=== PATIENT | female | born 1990 | race Caucasian/White ===

== ENCOUNTER → 2018-03-10 15:34 | Outpatient (CLI) | payer BC, SELFPAY | PROVIDERS: Family Provider Family Medicine; PCP Family Medicine; Visit Provider Family Medicine | DX: L02.91 Cutaneous abscess, unspecified (principal) | CPT/HCPCS: 87070; 87077; 87186; 87205 ==

== ENCOUNTER → 2018-04-07 15:49 | Outpatient (CLI) | payer BC, SELFPAY ==
[2018-04-07 19:55] LABS: M R Staph aureus DNA By PCR Negative (Negative); Probe Check PASS; Specimen Processing Control PASS
== END ==
PROVIDERS: Family Provider Family Medicine; PCP Family Medicine; Visit Provider Family Medicine
DX: Z20.818 Contact with and (suspected) exposure to other bacterial communicable diseases (principal)
CPT/HCPCS: 87081; 87641

== ENCOUNTER → 2018-09-23 14:00 | Outpatient (CLI) | payer BC, SELFPAY ==
[2017-06-06 07:34] VITALS: BMI 25.9
[2018-09-26 09:39] LABS: HPV Reflexed? NOT INDICATED
== END ==
PROVIDERS: Visit Provider Obstetrics & Gynecology
DX: Z12.4 Encounter for screening for malignant neoplasm of cervix (principal)
CPT/HCPCS: 88175; G0145

== ENCOUNTER → 2019-06-10 | Outpatient (CLI) | payer BC, SELFPAY ==
[2019-06-10 17:38] LABS: Chlamydia Trachomatis by PCR Negative (Negative); Neisserai gonorrhoeae by PCR Negative (Negative); Probe Check PASS; Sample Adequacy Control PASS; Specimen Processing Control PASS
== END | disposition home or self-care (01) ==
LOC: LABSPEC 14:10
PROVIDERS: Visit Provider Obstetrics & Gynecology
DX: Z34.81 Encounter for supervision of other normal pregnancy, first trimester (principal)
CPT/HCPCS: 87491; 87591

== ENCOUNTER → 2019-06-25 | Outpatient (CLI) | payer BC, SELFPAY ==
[2017-06-06 07:34] VITALS: BMI 25.9
[2019-06-25 18:13] LABS: hCG Titer Quant., Serum 28404 mIU/mL (1-3)
== END | disposition home or self-care (01) ==
LOC: WOBLAB 16:06
PROVIDERS: Visit Provider Obstetrics & Gynecology
DX: O20.0 Threatened abortion (principal)
CPT/HCPCS: 36415; 84702

== ENCOUNTER 2019-06-26 18:02 | Emergency (ER) | payer BC, SELFPAY ==
[2019-06-26 18:03] VITALS: BP 101/75; PULSE 97; RESP 15; TEMP 36.7; O2SAT 100; BMI 22.1
--- NOTE | 2019-06-26 18:43 | ED.DCSUM_ITS ---
History of Present Illness Chief Complaint: Vag Bld, Preg Informant: Patient Onset: Days - 2 Context: Gradual Onset Timing: Intermittent Narrative: Is a 29-year-old female G2, P1 presenting with vaginal bleeding and abdominal cramping. Patient was a 5 weeks on ultrasound at her BILINGUAL CASE MANAGER office 2 days ago. Per the patient and her , 2 gestational sacs were seen but only one looked viable. No heartbeat was seen at that time. Last menstrual period was in April and patient should have been 8 weeks by last menstrual period. Patient is O-. Since that appointment patient has had increased spotting and then around 330 this afternoon she started developing heavy bleeding, cramping and passage of clots. Patient came to the emergency room for further evaluation. She currently denies any other complaints such as urinary symptoms. Past Medical History - Allergies and Home Meds Allergies/Adverse Reactions: Allergies No Known Allergies Allergy (Verified 06/26/19 18:03) Primary Care Physician: Eliezer Chapin DO [Primary Care Provider] - Past Medical History: None Surgical History: noncontributory Smoking Status: Never smoker Review of Systems All systems negative except as indicated Genitourinary: Reports: - - Pelvic pain, vaginal bleeding Physical Exam Vital Signs/Narrative: Vital Signs Temp Pulse Resp BP Pulse Ox 06/26/19 18:03 98.0 F 97 15 101/75 100 Inital Vital Signs reviewed: Yes General: Well nourished, Well developed, No Acute Distress Head: Normocephalic, Atraumatic Eyes: Perrl, EOMI. Negative for: Pale conjunctiva ENT: Moist mucous membranes, No rhinorrhea Neck: Supple, Nontender Cardiovascular: Regular rate, Regular rhythm, No murmurs Respiratory: No distress, CTA bilaterally, Chest nontender Abdomen: Soft, Nontender, Nondistended, Normal bowel sounds Back: Nontender, Normal Inspection Extremities: Nontender, No edema Skin: Normal color, No rash Neurological: Alert, Oriented x3, Cranial nerves II-XII grossly intact, Normal Strength, Normal Sensation Psychological: Normal affect, Normal Mood Diagnostic/Tx/Re-eval Clinical Impression(s) from Imaging Studies Obstetrics Ultrasound 06/26/19 18:49 IMPRESSION: And intact intrauterine gestation is not identified. The cervix is open and expanded by amorphous tissues consistent with miscarriage in process. Probable 2.4 x 1.8 x 1.1 cm involuting corpus luteum of the right ovary. Normal left ovary. No additional adnexal masses or free fluid. Electronically Signed: Adele Ordoñez MD at 20:42 EDT , Service support , Laboratory Data 06/26/19 06/26/19 06/26/19 19:00 19:00 19:00 WBC 7.0 RBC 4.09 L Hgb 12.2 Hct 37.1 MCV 90.7 MCH 29.8 MCHC 32.9 RDW Std Deviation 42.6 RDW Coeff of Lluvia 12.9 Plt Count 177 MPV 10.5 Immature Gran % (Auto) 0.100 Neut % (Auto) 55.3 Lymph % (Auto) 28.8 Eddy % (Auto) 9.3 Eos % (Auto) 5.8 H Baso % (Auto) 0.7 Absolute Neuts (auto) 3.9 Absolute Lymphs (auto) 2.02 Nucleated RBC % 0 HCG, Quant 86379 H Serum , Qual POSITIVE H Urine Color Urine Clarity Urine pH Ur Specific [place] Urine Protein Urine Glucose (UA) Urine Ketones Urine Occult Blood Urine Nitrite Urine Bilirubin Urine Urobilinogen Ur Leukocyte Esterase Urine RBC Urine WBC Ur Squamous Epith Cells Urine Bacteria Urine Mucus 06/26/19 20:33 WBC RBC Hgb Hct MCV MCH MCHC RDW Std Deviation RDW Coeff of Lluvia Plt Count MPV Immature Gran % (Auto) Neut % (Auto) Lymph % (Auto) Eddy % (Auto) Eos % (Auto) Baso % (Auto) Absolute Neuts (auto) Absolute Lymphs (auto) Nucleated RBC % HCG, Quant Serum , Qual Urine Color Red Urine Clarity Turbid Urine pH 5.0 Ur Specific [place] 1.025 Urine Protein 500 H Urine Glucose (UA) Normal Urine Ketones 5 H Urine Occult Blood 250 H Urine Nitrite Negative Urine Bilirubin Negative Urine Urobilinogen Normal Ur Leukocyte Esterase Negative Urine RBC > 100 SEEN Urine WBC 0-5 SEEN Ur Squamous Epith Cells 0-5 SEEN Urine Bacteria 0 SEEN Urine Mucus 0 SEEN - Medical Decision Making Is evaluated for vaginal bleeding and pain in early . Chart review shows that patient is Rh- and is given RhoGam. Patient is hemodynamically sta ble. Patient's hCG has dropped since yesterday which is consistent with an active miscarriage. Ultrasound is obtained which confirms this. Patient does not have any free fluid and I do not ectopic ruptured ectopic. Patient is counseled that she is experiencing a miscarriage and counseled on signs and symptoms requiring return to emergency room such as heavy vaginal bleeding or lightheadedness. A page was placed for her BILINGUAL CASE MANAGER for further follow-up. Patient is counseled on signs and symptoms requiring return to the emergency room. Patient verbalizes agreement and understand this plan. Patient discharged home in stable and improved condition. ED Disposition - Plan for ED Patient: Disposition: Home or Assisted Living Diagnosis: Inevitable complete miscarriage without complication Instructions: Miscarriage Prescriptions: Ibuprofen [Motrin] 600 mg PO Q6H PRN PRN #20 tab PRN Reason: Pain Or Fever Prescription Printed Ondansetron [Zofran Odt] 4 mg PO Q8H PRN PRN #12 tab PRN Reason: Nausea Prescription Printed Referrals: Eliezer Chapin DO [Primary Care Provider] - Additional Instructions: Please follow-up with your BILINGUAL CASE MANAGER next week. Call on Saturday. Return to the em ergency room and call your BILINGUAL CASE MANAGER if you develop persistent bleeding (bleeding through a pad an hour for 4 hours in a row), lightheadedness/dizziness or other worrisome symptoms. Make sure you drink plenty of fluids.
--- NOTE | 2019-06-26 18:49 | US_ITS ---
STUDY: FIRST TRIMESTER OBSTETRICAL ULTRASOUND REASON FOR EXAM: Female, 29 years old possible twin gestation with heavy bleeding. LMP: Uncertain TECHNIQUE: Transvaginal real-time exam with grayscale image documentation. TECHNICAL QUALITY: Adequate. PRIOR ULTRASOUND: None. FINDINGS: There is no demonstrated intrauterine gestational sac The uterus measures 10.4 x 5.8 x 5.2 cm. There is no demonstrated uterine fibroid. The endometrial space is empty with an endometrial thickness of 6 mm. The cervix is open and expanded by amorphous tissues. The right ovary measures 3.6 x 1.9 x 2.7 cm. There is a 2.4 x 1.8 x 1.1 cm complex area of the right ovary. There is no visualized right adnexal mass or complex lesion. The left ovary measures 2.8 x 1.6 x 1.4 cm.. There is no left ovarian cyst. There is no visualized left adnexal mass or complex lesion. There is no fluid in the cul de sac. US/Transvaginal w/Preg US IMPRESSION: And intact intrauterine gestation is not identified. The cervix is open and expanded by amorphous tissues consistent with miscarriage in process. Probable 2.4 x 1.8 x 1.1 cm involuting corpus luteum of the right ovary. Normal left ovary. No additional adnexal masses or free fluid. Electronically Signed: Adele Ordoñez MD at 20:42 EDT , Service support ,
[2019-06-26 19:51] LABS: Absolute Lymphocyte Count 2.02 X10^3/uL (0.83-4.51); Absolute Neutrophil Count 3.9 X10^3/uL (2.0-7.7); Basophil# 0.05 X10^3/uL; Basophil% 0.7 % (0-1); Eosinophil# 0.41 X10^3/uL; Eosinophils% 5.8 % (0-5); Hematocrit 37.1 % (37-47); Hemoglobin 12.2 g/dL (12.0-15.0); Lymphocyte # 2.02 X10^3/ul (4.0); Lymphocyte % 28.8 % (19-41); Mean Corp Hgb Conc 32.9 g/dL (32-36); Mean Corpuscular Hgb 29.8 pg (27.0-32.0); Mean Corpuscular Volume 90.7 fL (81-99); Mean Platelet Vol. 10.5 fl (6.2-12.0); Monocyte# 0.65 X10^3/uL; Monocyte% 9.3 % (0-10); NRBC Flagged by Analyzer 0 % (0-5); Neutrophil # 3.88 X10^3/uL (2.7-7.7); Neutrophil % 55.3 % (47-70); Platelet Count 177 K/mm3 (150-450); RBC Distribution Width CV 12.9 % (11.6-14.6); RBC Distribution Width SD 42.6 fl (35.1-43.9); Red Blood Count 4.09 M/mm3 (4.2-5.4)
[2019-06-26 20:03] LABS: Internal QC Validated? YES +Cl - CLEAR BKGD
[2019-06-26 20:04] VITALS: BP 95/65; PULSE 70; RESP 16; O2SAT 98
[2019-06-26 20:07] LABS: Pregnancy, Serum, hCG Quali. POSITIVE Negative
[2019-06-26 20:37] LABS: Bacteria 0 SEEN /hpf (None Seen); Mucous, Urine 0 SEEN /hpf (<or=2+)
[2019-06-26 20:45] LABS: Color, Urine Red (Yellow); Glucose, Dipstick Normal (Normal); Ketone-Dipstick 5 mg/dl (Negative); Leukocyte Esterase-Dipstick Negative /ul (Negative); Nitrite-Dipstick Negative (Negative); Occult Blood-Urine 250 /ul (Negative); Protein-Dipstick 500 mg/dl (Negative); Specific Gravity, Urine 1.025 (1.002-1.030); Urine Bilirubin Dipstick Negative (Negative); Urine Clarity Turbid (Clear); Urine Urobilinogen Normal (Normal)
[2019-06-26 20:52] LABS: Red Blood Cells-Urine > 100 SEEN /hpf (0-5); Squamous Epithelial Cells - UA 0-5 SEEN /hpf (5-10); White Blood Cells 0-5 SEEN /hpf (0-5)
[2019-06-26 20:54] LABS: hCG Titer Quant., Serum 22933 mIU/mL (1-3)
[2019-06-26 21:23] VITALS: BP 100/40; PULSE 75; RESP 18; O2SAT 96
== END 2019-06-26 21:23 | disposition home or self-care (01) ==
PROVIDERS: Emergency Provider Emergency Medicine; Family Provider Family Medicine; PCP Family Medicine
DX: O03.9 Complete or unspecified spontaneous abortion without complication (principal)
CPT/HCPCS: 76817; 81001; 84702; 84703; 85025; 90384; 96372; 99283; A4216; J2405; J2790

== ENCOUNTER 2019-07-09 06:45 | Day surgery (SDC) | payer BC, SELFPAY ==
--- NOTE | 2019-07-06 18:22 | HP.PCM_ITS ---
History and Physical Date of Admission: 07/09/19 HISTORY OF PRESENT ILLNESS: On 07/03/2019, Stephanie Ricci, a 29 year old female 1 0 1 0 1, presented for: -- US OB LIMITED GROWTH Stephanie is here for f/u u/s to ck retained products from SAB. Dr BOLANOS to review u/s. LMT Denies vaginal bleeding but had spotting after US today. She noted a clot passed after taking Cytotec. Denies abdominal pain, fever, chills, nausea, vomiting. She feels well. katie ALLERGIES: No Known Drug Allergies MEDICATIONS HISTORY: Current medications prescribed by our practice are: 1. misoprostol 200 mcg tablet, Dissolve 4 tablets buccally over 20 minutes Patient is also takin. Zyrtec 10 mg tablet, One pill by mouth once a day REVIEW OF SYSTEMS: GENERAL - Denies fever, or chills SKIN - Denies skin changes EYES - Denies visual changes EARS - Denies difficulty hearing NOSE - Denies nasal congestion or bleeding MOUTH - Denies sore throat or difficulty swallowing NECK - Denies pain or swelling RESPIRATORY - Denies shortness of breath or wheezing CARDIOVASCULAR - Denies palpitations or chest pain GASTROINTESTINAL - Denies nausea, vomiting, diarrhea, constipation GENITOURINARY - spotting, cramping MUSCULOSKELETAL - Denies joint or muscle pain NEUROLOGICAL - Denies localized numbness or weakness PSYCHIATRIC - Denies depression or anxiety ENDOCRINE - Denies heat or cold intolerance, weight loss or gain HEMATO-IMMUNOLOGIC - Denies excessive bleeding with cuts PAST HISTORY: Breast/Ovarian/Colon Cancers - Maternal Grandmother had Breast Cancer Infections - varicella vaccine Illnesses - seasonal allergies Accidents - no injuries of consequence History of Abnormal PAPS - no pap Hospitalizations - childhood admissions for asthma x 2 no issues with asthma x 10 y. does have rescue inhaler but hasn't used.; SURGICAL HISTORY: 1. wisdom teeth 2. T and A MENSTRUAL HISTORY: LMP Known?- Approximate-Month KnownAmount/Duration - 6 days, Regularity - Regular, Frequency - monthly days, LMP - 04/23/19, Age Onset Menarche - 13 PAST PREGNANCIES: Total Pregnancies - 2; Full Term Pregnancies - 1; Premature - 0; Abortions, Induced - 0; Abortions, Spontaneous - 1; Ectopics - 0; Multiple Births - 0; Living Children - 1 FAMILY HISTORY: Mother - Heart disorder; Maternal Grandparent - Carcinoma of breast; SOCIAL HISTORY: Alcohol Use - RARELY Smoking - Never Diet - moderate, balanced diet and caffeine < 2 drinks per day Lifestyle - Exercise - active work Seat Belt Use - always Employer - [employer] 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 Illicit Drug Use - denies use of street drugs Sexual Activity - Residence - owns a home and lives with Place of - [place] Hours Worked - 36-40 Spouse-Sig Other Name - Yehuda Rcici Spouse-Sig Other Occupation - Workers' Compensation Magistrate, Delivery Spouse-Sig Other Phone No - [phone] Children Name(s) - Sg Brock Control - recent SAB PHYSICAL EXAMINATION BP- 110/62 Sitting, Right arm, regular cuff Weight- 131.00 lbs Height- 65.25 inch BMI:21.68 CONSTITUTIONAL - NAD, well nourished, and well developed SKIN - No rash, lesions, or ulcers HEENT - normocephalic, atraumatic, sclerae anicteric LUNGS - normal respiratory rate and rhythm NEUROLOGICAL - normal gait, normal balance, normal motor PSYCHIATRIC - A and O to time, place, person, mood and affect rt and lt ovary are wnl. ULTRSOUND: Uterus RV, 7.9 x 6.4 x 4.3 cm. Within the cervical canal is a 2.8 cm blood clot. Endometrial stripe: 1.1 cm and appears to contain POC. Measuring 1.6 cm with internal blood flow. ASSESSMENT: 1. Incomplete Spontaneous Without Complication PLAN BY DIAGNOSIS: 1. Incomplete Spontaneous Without Complication US findings reviewed with likely retained POCs despite Cytotec, UPT remains positive Advised suction dilation and curettage - reviewed with pt how performed, hospital course, r/b/i No evidence of infection Infection, bleeding precautions reviewed Plan for suction D and C as scheduled. The visit was approximately 15 minutes in length with most of the time spent in discussion and counseling.
[2019-07-09] VITALS (7 sets, daily range): BP systolic 91–107; BP diastolic 64–91; PULSE 68–74; RESP 16–18; TEMP 36.4–36.9; O2SAT 98–100; BMI 22.0
[2019-07-09 07:29] LABS: International Normalized Ratio 1.3; Prothrombin Time (Protime)PT. 15.8 SECONDS (11.7-14.9)
[2019-07-09 07:30] LABS: Partial Thromboplast Time 37.7 Seconds (24.1-36.2)
[2019-07-09] MEDS: Lactated Ringers 1,000 ML 100 ML IV (07:35)
[2019-07-09 07:36] LABS: Hematocrit 31.9 % (37-47); Hemoglobin 10.3 g/dL (12.0-15.0); Mean Corp Hgb Conc 32.3 g/dL (32-36); Mean Corpuscular Hgb 29.5 pg (27.0-32.0); Mean Corpuscular Volume 91.4 fL (81-99); Mean Platelet Vol. 10.3 fl (6.2-12.0); Platelet Count 152 K/mm3 (150-450); RBC Distribution Width CV 12.9 % (11.6-14.6); Red Blood Count 3.49 M/mm3 (4.2-5.4); White Blood Count 4.2 K/mm3 (4.4-11.0)
--- NOTE | 2019-07-09 07:36 | DCINST_ITS ---
Discharge Diet: No Restrictions Discharge Activity: May Shower, May Take a Tub Bath May resume sexual activity in: 1 week Call your doctor if you observe: Fever of 101 or Higher, Using more than one pad per hour, Uncontrolled pain Additional Instructions: Take tylenol 500 mg tabs one or two every 8 hr prn pain. You may add either two Aleve by mouth every 8 hrs, or Ibuprofen 200 mg tablets one to two tablets by mouth every 4 hours as needed for pain. Resume activity as tolerated on 07/10/19 with no restrictions. Allergies/Adverse Reactions: Allergies No Known Allergies Allergy (Verified 07/09/19 07:25) Medications to take at Discharge Cetirizine HCl [Zyrtec] 10 mg PO DAILY 06/06/17 Albuterol Inhaler [Ventolin Hfa (SP)] 1 - 2 puff INHALATION Q4H PRN PRN 07/08/19 Fluticasone 0.05% [Flonase Nasal [place]] 1 spray NASAL DAILY 07/08/19 Primary Care Physician: Eliezer Chapin DO [Primary Care Provider] - Test Results: Test results from this visit will be discussed in further detail at your follow- up appointment, if applicable. Please Follow Up With: Rosalba Olsen MD - [phone] When: in 2 wk for postop check up Proposed Discharge Date: 07/09/19
--- NOTE | 2019-07-09 08:10 | POC_PTH ---
PATIENT: AMELIA ALVARADO [place] [facility] [id number] AGE/SX: 29/F ROOM: RE07/09/[address]: Dr. Rosalba Olsen MD : 1990 BED: DIS: 07/09/2019 SPEC #: [id number] RECD: 07/09/19 13:00 STATUS: CARMEN RON #: [id number] SUZY: 07/09/19 08:[address]: Rosalba Olsen DEPT: SURGICAL PATHOLOGY RECD BY: Luigi Rangel ENTERED: 07/09/19 13:31 SP TYPE: PROD CONC OTHR DR: Dr. Eliezer Chapin, Tissues: Product of conception, NOS Procedures: Surgery Specimen Level IV HEADER OPERATION: Dilation and curettage, suction PRE-OP DIAGNOSIS: Incomplete spontaneous TISSUE SUBMITTED: Products of conception MICROSCOPIC DIAGNOSIS Products of conception: [place], gestational endometrium and a few immature chorionic villi (products of conception). SJ:niurka 07/10/19 MICROSCOPIC DESCRIPTION Slides are reviewed. GROSS DESCRIPTION Received in fixative is one container labeled with the patient's name and designated products of conception. The specimen consists of multiple irregular fragments of red-cruz soft tissue that in aggregate measure 4 x 3.5 x 0.8 cm. The specimen is submitted in its entirety in three cassettes. / AM:niurka 07/09/19 TC:5 CPT: 02117
--- NOTE | 2019-07-10 08:54 | PCM.OPRPT ---
Report of Operation Date of Procedure: 07/09/19 Pre-Operative Diagnosis: retained products of conception, incomplete SAB Post-Operative Diagnosis: Same Surgery/Procedure Performed:: Suction D and C Description of Surgical Findings:: parou cervix. uterus sounds to 8-9 cm and retroverted. Anesthesiologist: Evita Harding CRNA Specimen's removed: uterine curettings, products of conception Drains: Red kim to drain bladder prior to case Estimated Blood Loss (mL): 20 Fluids Replaced: LR Description of Procedure: Narrative account After the R,B,Alternatives of the procedure were reviewed with the patient and her , informed consent was obtained. The patient was taken to the operating room with an IV running and placed in dorsal supine position of the operating table. She was given MAC IV sedation and repositioned to the dorsal lithotomy position and prepped and draped in the usual sterile fashion. A graves speculum was placed into the vagina and the cervix was brought into view. The cervix was parous appearing . The cervix was instilled with 5 cc of 1% lidocaine as a paracervical block using a 20 G spinal needle. The cervix was then sequentially dilated to allow admission of the 7 mm curved suction curette tip. A suction D and C was then performed, followed by sharp curettage. Good crei was noted in all quadrants. . One final pass was conducted with the sharp curette tip advanced through the cervix to the uterine fundus . The single toothed tenaculum was removed from the cervix and a Ray Abe was used to remove any remaining tissue and blood from the upper vagina and cervix. The procedure was terminated. The speculum was removed. The patient was returned to dorsal supine position and awakened from IV sedation and transferred to her recovery room bed in stable condition after tolerating the procedure well. Sponge, lap, needle and instrument counts were correct x two. medications given intraoperatively included 5 cc of 1% lidocaine without epinephrine instilled as a paracervical block. For a complete listing of the medications given intraoperatively, see the anesthesia record. - Complications none - Admit VTE Documentation VTE Present on Admission: No VTE Mechan Device Prophylaxis: SCD's VTE Pharm Prophylaxis ordered?: No
== END 2019-07-09 09:25 | disposition home or self-care (01) ==
LOC: SDC 06:50 → AC 06:51
PROVIDERS: Family Provider Family Medicine; PCP Family Medicine; Referring Provider Obstetrics & Gynecology; Visit Provider Obstetrics & Gynecology
PROC: (CPT 59812; principal; 2019-07-09 07:55)
DX: O03.4 Incomplete spontaneous abortion without complication (principal); J45.909 Unspecified asthma, uncomplicated; Z79.51 Long term (current) use of inhaled steroids
CPT/HCPCS: 59812; 36415; 85027; 85610; 85730; 86850; 86870; 86900; 86901; 88305; J7120

== ENCOUNTER → 2019-11-06 | Outpatient (CLI) | payer BC, SELFPAY ==
[2019-07-09 07:25] VITALS: BMI 22.0
[2019-11-06 15:27] LABS: Chlamydia Trachomatis by PCR Negative (Negative); Neisserai gonorrhoeae by PCR Negative (Negative); Probe Check PASS; Sample Adequacy Control PASS; Specimen Processing Control PASS
== END | disposition home or self-care (01) ==
LOC: LABSPEC 13:11
PROVIDERS: PCP Family Medicine; Visit Provider Obstetrics & Gynecology
DX: Z11.3 Encounter for screening for infections with a predominantly sexual mode of transmission (principal)
CPT/HCPCS: 87491; 87591

== ENCOUNTER → 2019-11-27 | Outpatient (CLI) | payer BC, SELFPAY ==
[2019-07-09 07:25] VITALS: BMI 22.0
[2019-11-27 12:13] LABS: Absolute Lymphocyte Count 1.58 X10^3/uL (0.83-4.51); Absolute Neutrophil Count 3.9 X10^3/uL (2.0-7.7); Basophil# 0.04 X10^3/uL; Basophil% 0.6 % (0-1); Eosinophil# 0.41 X10^3/uL; Eosinophils% 6.2 % (0-5); Hematocrit 38.2 % (37-47); Hemoglobin 12.3 g/dL (12.0-15.0); Lymphocyte # 1.58 X10^3/ul (4.0); Lymphocyte % 23.8 % (19-41); Mean Corp Hgb Conc 32.2 g/dL (32-36); Mean Corpuscular Volume 83.8 fL (81-99); Mean Platelet Vol. 11.2 fl (6.2-12.0); Monocyte# 0.73 X10^3/uL; NRBC Flagged by Analyzer 0 % (0-5); Neutrophil # 3.86 X10^3/uL (2.7-7.7); Neutrophil % 58.1 % (47-70); Platelet Count 159 K/mm3 (150-450); RBC Distribution Width SD 54.2 fl (35.1-43.9); Red Blood Count 4.56 M/mm3 (4.2-5.4); White Blood Count 6.6 K/mm3 (4.4-11.0)
[2019-11-27 12:33] LABS: Thyroid Stim Hormone (TSH) 1.82 uIU/mL (0.358-3.74)
[2019-11-27 13:02] LABS: HIV - WCH Non-Reactive (Nonreactive); Hepatitis B Surface Antigen Non-Reactive (Nonreactive); Hepatitis C Antibody Non-Reactive (Nonreactive); Rubella IgG 46.1 IU/mL; Vitamin D,25 Hydroxy 29.2 ng/mL
[2019-11-27 15:41] LABS: Color, Urine Yellow (Yellow); Glucose, Dipstick Normal (Normal); Ketone-Dipstick Negative (Negative); Leukocyte Esterase-Dipstick 25 /ul (Negative); Nitrite-Dipstick Negative (Negative); Occult Blood-Urine Negative /ul (Negative); Protein-Dipstick Negative (Negative); Specific Gravity, Urine 1.015 (1.002-1.030); Urine Bilirubin Dipstick Negative (Negative); Urine Clarity Clear (Clear); Urine Urobilinogen Normal (Normal)
[2019-11-27 15:53] LABS: Amphetamine Urine VISTA NEGATIVE (<1000 ng/mL); Barbiturate Urine VISTA NEGATIVE (< 200 ng/mL); Benzodiazepine Urine VISTA NEGATIVE (< 200 ng/mL); Cocaine Urine VISTA NEGATIVE (< 300 ng/mL); Ecstacy Urine VISTA NEGATIVE (< 500 ng/mL); Methadone Urine VISTA NEGATIVE (< 300 ng/mL); PCP Urine VISTA NEGATIVE (< 25 ng/mL); THC Urine VISTA NEGATIVE (< 50 ng/mL); Vista UDS pH Range 6
[2019-12-04 04:37] LABS: Prenatal RPR NONREACTIVE (NONREACTIVE)
== END | disposition home or self-care (01) ==
LOC: WOBLAB 10:39
PROVIDERS: PCP Family Medicine; Visit Provider Obstetrics & Gynecology
DX: Z34.81 Encounter for supervision of other normal pregnancy, first trimester (principal)
CPT/HCPCS: 36415; 80307; 81002; 82306; 84443; 85025; 86703; 86762; 86803; 87340

== ENCOUNTER → 2020-04-14 09:37 | Outpatient (CLI) | payer BC, SELFPAY ==
[2019-07-09 07:25] VITALS: BMI 22.0
[2020-04-14 10:55] LABS: Glucose Challenge Gest 1H 50g 113 mg/dL (70-140)
[2020-04-14 10:56] LABS: Hemoglobin 10.8 g/dL (12.0-15.0); Mean Corp Hgb Conc 33.8 g/dL (32-36); Mean Corpuscular Hgb 31.8 pg (27.0-32.0); Mean Corpuscular Volume 94.1 fL (81-99); Platelet Count 115 K/mm3 (150-450); RBC Distribution Width CV 13.2 % (11.6-14.6); RBC Distribution Width SD 45.1 fl (35.1-43.9); White Blood Count 8.3 K/mm3 (4.4-11.0)
== END ==
LOC: LABSPEC 09:38 → WOBLAB 09:54
PROVIDERS: PCP Family Medicine; Visit Provider Obstetrics & Gynecology
DX: Z34.83 Encounter for supervision of other normal pregnancy, third trimester (principal)
CPT/HCPCS: 36415; 82950; 85027; 86850

== ENCOUNTER → 2020-06-02 | Outpatient (CLI) | payer BC, SELFPAY ==
[2019-07-09 07:25] VITALS: BMI 22.0
== END | disposition home or self-care (01) ==
LOC: LABSPEC 11:39
PROVIDERS: PCP Family Medicine; Visit Provider Obstetrics & Gynecology
DX: Z36.85 Encounter for antenatal screening for Streptococcus B (principal)
CPT/HCPCS: 87081

== ENCOUNTER 2020-07-01 04:42 | Inpatient (IN) | payer BC, SELFPAY ==
[2019-07-09 07:25] VITALS: BMI 22.0
[2020-07-01] VITALS (74 sets, daily range): BP systolic 63–120; BP diastolic 32–87; PULSE 63–101; RESP 16–18; TEMP 36.7–37.6; O2SAT 96–100; BMI 26.6
[2020-07-01] MEDS: Lactated Ringers 500 ML 999 ML IV ×3 (04:57→08:32)
[2020-07-01 05:05] LABS: ROM Internal Control Test YES-OK TO RESULT pt. (Internal QC); ROM Patient Test Negative (Negative)
[2020-07-01 05:16] LABS: Absolute Lymphocyte Count 1.69 X10^3/uL (0.83-4.51); Absolute Neutrophil Count 11.6 X10^3/uL (2.0-7.7); Basophil# 0.03 X10^3/uL; Basophil% 0.2 % (0-1); Eosinophil# 0.24 X10^3/uL; Eosinophils% 1.6 % (0-5); Hematocrit 34.5 % (37-47); Hemoglobin 11.4 g/dL (12.0-15.0); Lymphocyte # 1.69 X10^3/ul (4.0); Lymphocyte % 11.5 % (19-41); Mean Corpuscular Volume 93.8 fL (81-99); Mean Platelet Vol. 12.1 fl (6.2-12.0); Monocyte# 1.07 X10^3/uL; Monocyte% 7.3 % (0-10); NRBC Flagged by Analyzer 0 % (0-5); Neutrophil # 11.58 X10^3/uL (2.7-7.7); Neutrophil % 78.9 % (47-70); Platelet Count 108 K/mm3 (150-450); RBC Distribution Width CV 13.4 % (11.6-14.6); RBC Distribution Width SD 45.1 fl (35.1-43.9); Red Blood Count 3.68 M/mm3 (4.2-5.4); White Blood Count 14.7 K/mm3 (4.4-11.0)
[2020-07-01] MEDS: Lactated Ringers 1,000 ML 200 ML IV (05:35)
[2020-07-01] MEDS: fentaNYL-bupivacaine (epidural) 100 ML BAG EPIDURAL (06:03)
--- NOTE | 2020-07-01 08:30 | HP.PCM_ITS ---
History and Physical Chief complaint: Contractions History of present illness: 30-year-old G3, P1 at 40 weeks and 4 days with COREY: 06/27/20 by 9-week ultrasou nd arrives with contractions. Patient denies chest pain, shortness of breath, headache, visual changes, nausea vomiting, right upper quadrant pain. Denies vaginal bleeding. States good movement. 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 G1: Vacuum-assisted vaginal delivery male 06/07/2017 G2: SAB 07/10/2019 D&C G3: Current Past medical history: Gestational thrombocytopenia Rh- Medications: vitamin Past surgical history: [place] teeth extraction Tonsils and adenoids Dilation curettage Allergies: No known drug allergies Social: Denies smoking alcohol drug use Family history: Denies history DVT or PE Review of systems: Besides the above pertinent positives a full review of systems performed found to be negative Physical exam: Vital Signs Temp Pulse BP Pulse Ox 07/01/20 08:34 68 74/45 L 07/01/20 08:30 67 63/32 L 07/01/20 08:29 63 100 07/01/20 07:35 98.2 F 78 94/61 100 07/01/20 07:33 80 100 07/01/20 07:28 77 100 07/01/20 07:23 77 100 07/01/20 07:18 80 100 07/01/20 07:13 82 100 07/01/20 07:08 78 95/63 99 07/01/20 07:05 80 91/58 L 07/01/20 07:03 78 84/52 L 100 07/01/20 06:58 77 99/63 99 07/01/20 06:53 81 95/61 100 07/01/20 06:49 75 95/62 07/01/20 06:48 80 100 07/01/20 06:44 79 110/71 07/01/20 06:43 79 100 07/01/20 06:41 80 89/51 L 07/01/20 06:40 80 83/48 L 07/01/20 06:38 86 99 07/01/20 06:34 90 89/52 L 07/01/20 06:33 82 98 07/01/20 06:32 111/63 07/01/20 06:28 78 78/49 L 98 07/01/20 06:27 77/45 L 07/01/20 06:24 98.4 F 07/01/20 06:23 90 96 07/01/20 06:20 65 120/66 07/01/20 06:18 69 78/45 L 98 07/01/20 06:15 76 84/51 L 07/01/20 06:13 84 98 07/01/20 06:08 90 100/58 L 98 07/01/20 06:05 83 107/57 L 07/01/20 06:03 80 100 07/01/20 05:59 78 93/65 07/01/20 05:58 76 99 07/01/20 05:53 71 100 07/01/20 05:48 98 100 07/01/20 05:43 98 100 07/01/20 05:30 98.4 F 07/01/20 04:50 90 100 07/01/20 04:22 93 108/87 H 07/01/20 04:21 98.1 F General: Normal-appearing no acute distress HEENT: Normocephalic atraumatic no cervical lymphadenopathy Cardiac/respiratory: No labored believe breathing, no use of accessory muscles Abdomen: Soft nontender gravid. Positive bowel sounds Pelvic: Cervical exam-7/80/-1 Extremities: +1 peripheral edema normal peripheral pulses Psych: Normal affect normal demeanor nonpressured speech heart rate: 130/mod lluvia/+accel/-decel [place]: q3 min Mom's Labs & Results 07/01/20 07/01/20 07/01/20 04:35 04:57 04:57 WBC 14.7 H RBC 3.68 L Hgb 11.4 L Hct 34.5 L MCV 93.8 MCH 31.0 MCHC 33.0 RDW Std Deviation 45.1 H RDW Coeff of Lluvia 13.4 Plt Count 108 L MPV 12.1 H Immature Gran % (Auto) 0.500 Neut % (Auto) 78.9 H Lymph % (Auto) 11.5 L [place] % (Auto) 7.3 Eos % (Auto) 1.6 Baso % (Auto) 0.2 Absolute Neuts (auto) 11.6 H Absolute Lymphs (auto) 1.69 Nucleated RBC % 0 Vag Amniotic Fld Detect Negative Blood Type O NEGATIVE Antibody Screen NEGATIVE Labs Blood Type: O RH: NEGATIVE RPR/VDRL/Syphilis Nonreactive Rubella status Immune HbSAg Negative Date Done: 11/27/19 Chlamydia Negative Gonorrhea Negative HIV/AIDS Non-Reactive Group B Strep: Negative Assessment and plan: 30-year-old at 40 weeks and 4 days in labor. -Admit to labor and delivery -CEFM -GBS negative -Rh-: In need of RhoGam status post delivery -Gestational thrombocytopenia: Stable -Anesthesia to see
[2020-07-01] MEDS: Oxytocin 30 units/NS 500 ml 30 UNITS/500 ML IV.SOLN 334 UNITS IV (11:24)
--- NOTE | 2020-07-01 11:34 | PCM.OPRPT ---
Vaginal Delivery Maternal Presentation: Active Labor Final COREY: 06/27/20 Final COREY Source: US <20 weeks Gestational age: 40 Weeks and 4 Days Date of Procedure: 07/01/20 Pre-Operative Diagnosis: Labor, Post-Operative Diagnosis: Labor, term Surgery/ Procedure Performed: Spontaneous Vaginal Delivery Type of Anesthesia: Epidural Description of Procedure: Normal spontaneous vaginal delivery of a viable male infant, vertex VIRAL. Nuchal cord x1. Head and shoulders look with ease. Cord was cut and clamp baby was handed off to nursing. Placenta was delivered via fundal massage and cord traction. First-degree laceration noted and repaired in typical fashion. EBL 300 cc Apgars 9/9
[2020-07-01] MEDS: Ibuprofen 600 MG Tablet PO ×2 (16:31→22:05)
[2020-07-02 03:57] VITALS: BP 108/64; PULSE 76; RESP 18; TEMP 36.6
--- NOTE | 2020-07-02 08:26 | PN.OBGYN_ITS ---
Subjective: No overnight complaints. Pain well controlled. Minimal lochia. Denies chest pain, shortness of breath, nausea vomiting - Physical Exam Vitals/I&O's: Vital Signs Temp Pulse Resp BP Pulse Ox 97.9 F 76 18 108/64 98 07/02/20 03:57 07/02/20 03:57 07/02/20 03:57 07/02/20 03:57 07/01/20 16:20 Oxygen Delivery Method Room Air Weight: 160 lb 0.889 oz Body Mass Index (BMI) 26.6 Intake and Output for Last 24 Hours 06/30/20 07/01/20 07/02/20 23:59 23:59 23:59 Intake Total 2950 / 2950 Output Total 600 / 600 Balance 2350 / 2350 General: Alert, Oriented x3, Cooperative, No apparent distress HEENT: Atraumatic, Normocephalic Oral: Moist Mucosa Neck: Supple Abdomen: Bowel Sounds Present, Soft, Non Tender, Gravid - Fundus firm below umbilicus Extremities: No clubbing, No cyanosis, No edema Psych/Mental Status: Normal Affect, Appropriate, Alert and oriented to time, place, person, mood and affect Laboratory Results 07/01/20 13:10: Screen NEGATIVE, Baby's Blood Type O POSITIVE, Baby's REJI NEGATIVE Current Medications Acetaminophen (Acetaminophen 500 Mg Tablet) 1,000 mg PO Q8H PRN PRN PRN Reason: Pain Score 1-3 Bisacodyl (Bisacodyl 10 Mg Suppository) 10 mg RECTAL UD PRN PRN Reason: If no BM Dibucaine (Dibucaine 30 Gm Tube) 1 applic TOPICAL TID PRN PRN; Protocol PRN Reason: Discomfort Hydrocortisone (Hydrocortisone 2.5% Crm) 1 applic TOPICAL TID PRN PRN; Protocol PRN Reason: Discomfort Ibuprofen (Ibuprofen 600 Mg Tablet) 600 mg PO Q6H PRN PRN PRN Reason: Pain Score 1-3 Last Admin: 07/01/20 22:05 Dose: 600 mg Documented by: Ondansetron HCl (Ondansetron 4 Mg/2 Ml Vial) 4 mg IV Q4H PRN PRN PRN Reason: Nausea Oxycodone HCl (Oxycodone 5 Mg Tablet) 5 mg PO Q4H PRN PRN PRN Reason: Pain Score 4-10 Senna/Docusate Sodium (Senna/Docusate Sodium 1 Tablet) 1 - 2 tablet PO DAILY PRN PRN PRN Reason: Constipation Simethicone (Simethicone 80 Mg Tablet) 80 mg PO PCHS PRN PRN Reason: Indigestion/Stomach pain Sodium Chloride (0.9% Saline Lock 10 Ml Syringe) 5 - 15 ml IV UD PRN PRN Reason: SALINE FLUSH Medical Necessity - Tobacco Use Smoking Status: Never smoker Assessment/Plan day 1 status post vaginal delivery. Breast-feeding. Pain well controlled. Okay to discharge home if okay with auditing specialist
--- NOTE | 2020-07-02 08:28 | DCINST_ITS ---
Discharge Diet: No Restrictions Discharge Activity: Return to Normal Activity, May Shower, - - No tub baths for 2 weeks May resume sexual activity in: 2 weeks Weight Bearing Status: Weight bearing as tolerated Call your doctor if your incision/area has: Foul Smelling Discharge Call your doctor if you observe: Fever of 101 or Higher, Shortness of breath, Chest pain Additional Instructions: If you experience any of the following, contact your healthcare provider. * Bleeding that soaks a pad every hour for 2 hours * Fever 100.4 or higher * Unrelieved incision or abdominal pain * Swelling, redness, discharge or bleeding from your incision or episiotomy site * Your incision begins to separate * Problems urinating (including inability to urinate or burning while urinating). * Visual changes * Severe headache * Flu-like symptoms * Pain or redness in one of both of your breasts * Pain, warmth, tenderness or swelling in your legs, especially the calf area * Frequent nausea and vomiting * Symptoms of depression or anxiety If you experience any of the following, call 911 or go to the nearest Emergency Room. * Chest pain * Problems breathing * Seizure activity * Partial or complete paralysis of a body part, slurred speech, weakness or drooping of the face, or a sudden inability to walk or hold your balance Allergies/Adverse Reactions: Allergies No Known Allergies Allergy (Verified 07/09/19 07:25) Medications to take at Discharge Albuterol Inhaler [Ventolin Hfa (SP)] 1 - 2 puff INHALATION Q4H PRN PRN 07/08/19 Loratadine [Claritin] 10 mg PO DAILY 07/01/20 Pnv No.95/Ferrous Fum/Folic AC [ Caplet] 1 tab PO DAILY 07/01/20 Please Follow Up With: Tristan Rios MD When: 4 to 6 weeks Primary Care Physician: Eliezer Chapin DO [Primary Care Provider] - Test Results: Test results from this visit will be discussed in further detail at your follow- up appointment, if applicable.
[2020-07-02 09:00] VITALS: BP 98/57; PULSE 82; RESP 16; TEMP 36.7; O2SAT 98
[2020-07-02 13:01] VITALS: BP 93/57; PULSE 85; RESP 16; TEMP 36.8
== END 2020-07-02 14:15 | disposition home or self-care (01) | DRG 807 ==
LOC: WPOUT 04:50 → WP 04:50
PROVIDERS: Admitting Provider Obstetrics & Gynecology; PCP Family Medicine; Referring Provider Obstetrics & Gynecology; Visit Provider Obstetrics & Gynecology
DX: O99.12 Other diseases of the blood and blood-forming organs and certain disorders involving the immune mechanism complicating childbirth (principal); Z37.0 Single live birth; D69.6 Thrombocytopenia, unspecified; O69.81X0 Labor and delivery complicated by cord around neck, without compression, not applicable or unspecified; O48.0 Post-term pregnancy; Z3A.40 40 weeks gestation of pregnancy; O70.0 First degree perineal laceration during delivery
CPT/HCPCS: 59025; 59050; 84112; 85025; 85461; 86850; 86900; 86901; 90384; 99218; J7120; 90686; G0378; J2790

== ENCOUNTER → 2020-09-15 13:55 | Outpatient (CLI) | payer BC, SELFPAY ==
[2020-07-01 04:30] VITALS: BMI 26.6
== END ==
PROVIDERS: PCP Family Medicine; Visit Provider Family Medicine
DX: Z20.822 Contact with and (suspected) exposure to COVID-19 (principal)
CPT/HCPCS: 87635; U0005; U0003

== ENCOUNTER → 2020-11-04 09:03 | Outpatient (CLI) | payer BC, SELFPAY ==
[2020-07-01 04:30] VITALS: BMI 26.6
[2020-11-04 13:29] LABS: Cholesterol 145 mg/dL (200); Glucose 70 mg/dL (74-106); High Density Lipoprotein 61 mg/dL; Triglycerides 52 mg/dL; Very Low Density Lipoprotein 10 mg/dL (5-40)
== END ==
PROVIDERS: PCP Family Medicine; Visit Provider Family Medicine
DX: Z00.00 Encounter for general adult medical examination without abnormal findings (principal)
CPT/HCPCS: 36415; 80061; 82947

== ENCOUNTER → 2022-02-14 | Outpatient (CLI) | payer BC, SELFPAY ==
[2022-02-20 15:45] LABS: HPV Reflexed? NOT INDICATED
== END | disposition home or self-care (01) ==
LOC: LABSPEC 15:54
PROVIDERS: PCP Family Medicine; Visit Provider Obstetrics & Gynecology
DX: Z12.4 Encounter for screening for malignant neoplasm of cervix (principal)
CPT/HCPCS: 88175; G0145

== ENCOUNTER → 2022-12-03 | Outpatient (CLI) | payer BC, SELFPAY ==
[2022-12-03 18:37] LABS: Cholesterol 146 mg/dL (200); Glucose 114 mg/dL (74-106); High Density Lipoprotein 43 mg/dL; Triglycerides 79 mg/dL; Very Low Density Lipoprotein 16 mg/dL (5-40)
== END | disposition home or self-care (01) ==
PROVIDERS: PCP Family Medicine; Referring Provider Family Medicine; Visit Provider Family Medicine
DX: Z00.00 Encounter for general adult medical examination without abnormal findings (principal)
CPT/HCPCS: 36415; 80061; 82947

== ENCOUNTER → 2023-10-17 | Outpatient (CLI) | payer BC, SELFPAY | END | disposition home or self-care (01) | LOC: LABSPEC 13:14 | PROVIDERS: PCP Family Medicine; Visit Provider Family Medicine | DX: N39.0 Urinary tract infection, site not specified (principal) | CPT/HCPCS: 87086; 87088; 87186 ==

== ENCOUNTER → 2024-04-10 | Outpatient (CLI) | payer BC, SELFPAY ==
[2024-04-10 17:55] LABS: Cholesterol 156 mg/dL (200); Glucose 95 mg/dL (74-106); High Density Lipoprotein 52 mg/dL; Triglycerides 145 mg/dL; Very Low Density Lipoprotein 29 mg/dL (5-40)
== END | disposition home or self-care (01) ==
LOC: BFHLAB 14:42
PROVIDERS: PCP Family Medicine; Referring Provider Family Medicine; Visit Provider Family Medicine
DX: Z00.00 Encounter for general adult medical examination without abnormal findings (principal)
CPT/HCPCS: 36415; 80061; 82947

== ENCOUNTER → 2025-04-07 | Outpatient (CLI) | payer BC, SELFPAY ==
--- OUTSIDE RECORDS SUMMARY | 2025-04-07 19:18 | XMS RPT_ITS | CCD ---
Author Organization [facility] CliniSyut Care Team Providers Care Wood Machinist Name Role Phone Eliezer Chapin Primary Care Unavailable Leatha Crawford Attending Unavailable Eliezer Chapin Referring Unavailable Eliezer Chapin Referring Unavailable Eliezer Chapin Attending Unavailable Eliezer Chapin Primary Care Unavailable Dr. Eliezer Chapin DO Primary Care Provider [phone] Dr. Eliezer Chapin DO Referring Provider [phone] Yvette SEPTIC PUMP TRUCK DRIVERYadiCLeatha Attending Provider [phone] Medications Current Medications Medication Drug Class(es) Dates Sig (Normalized) Sig (Original) [id number] 200 actuat albuterol 0.09 mg/actuat metered dose inhaler (3 sources) beta2-Adrenergic Agonist Start: 07-08-2019 Albuterol Sulfate 1 INHALER inhaler Active 1 - 2 NMA INHALATION EVERY 4 HOURS NEEDED as needed for Asthma July 08, 2019 12:00am Start: 07-08-2019 take 1 puff(s) by in halation every four hours as needed Albuterol Sulfate Active 1 - 2 PUFF inhalation EVERY 4 HOURS NEEDED July 07, 2019 11:00pm Norgestimate-Ethinyl Estradiol (4 sources) Progestin, Estrogen Start: 04-07-2025 take 0.25 tablet by mouth once daily Norgestimate-Ethinyl Estradiol (Sally) 0.25-0.035 mg tablet Active 1 {tbl} PO DAILY 84 April 07, 2025 10:16am Start: 11-25-2024 End: 04-07-2025 Norgestimate-Ethinyl Estradi ol (Sally) 0.25-35 mg-mcg tablet Discontinued 1 {tbl} PO DAILY 84 November 25, 2024 4:21pm April 07, 2025 10:17am Start: 03-18-2024 End: 11-25-2024 Norgestimate-Ethinyl Estradi ol (Sally) 0.25-35 mg-mcg tablet Discontinued 1 {tbl} PO DAILY 84 2 March 18, 2024 10:25am November 25, 2024 4:21pm Start: 03-18-2024 End: 03-18-2024 Norgestimate-Ethinyl Estradi ol (Sally) 0.25-35 mg-mcg tablet Discontinued 1 {tbl} PO DAILY March 18, 2024 12:00am March 18, 2024 10:26am loratadine 10 mg oral tablet (3 sources) Start: 07-01-2020 take 1 tablet by mouth once daily Loratadine 10 MG tablet Active 10 mg PO DAILY July 01, 2020 12:00am allergies montelukast 10 mg oral tablet (1 source) Leukotriene Receptor Antagonist Start: 03-18-2024 take 1 tablet by mouth once daily Montelukast (Singulair) 10 mg tablet Active 10 mg PO DAILY March 18, 2024 12:00am Pnv Cmb#95-Ferrous Fumarate-Fa (2 sources) Start: 07-01-2020 take 1 tablet by mouth once daily Pnv Cmb#95-Ferrous Fumarate-Fa Active 1 TABLET PO DAILY June 30, 2020 11:00pm Start: 07-01-2020 take 1 tablet by renetta th once daily Pnv Cmb#95-Ferrous Fumarate-Fa Active 1 TABLET PO DAILY July 01, 2020 12:00am Completed/Discontinued Medications Medication Drug Class(es) Dates Sig (Normalized) Sig (Original) Pnv Cmb#95-Ferrous Fumarate-Fa 1 EACH tablet (1 source) Start: 07-01-2020 End: 04-07-2025 Pnv Cmb#95-Ferrous Fumarate-Fa 1 EACH tablet Discontinued 1 {tbl} PO DAILY July 01, 2020 12:00am April 07, 2025 9:59am Problems Problem Classification Problem Date Documented Da te Episodic/Chronic Spontaneous (3 sources) Complete inevitable miscarriage without complication; Translations: [Complete or unspecified spontaneous without complication] 06-27-2019 Episodic Results Test Name Value Interpretation Reference Range Facility Glucoseon 04-10-2024 Glucose [Mass/Vol] 95 mg/dL Normal 74-106 [facility] Comment on above: Performed By: #### L 501.0100, L500.4100 #### [facility] [address] [place], [address] Lipid Profileon 04-10-2024 Cholesterol [Mass/Vol] 156 mg/dL Normal 200 [facility] Comment on above: Result Comment: <200 mg/dL Desirable 200-240 mg/dL Borderline >240 mg/dL High Risk Performed By: #### L 501.0100, L500.4100 #### [facility] [address] [place], [address] Cholesterol in HDL [Mass/Vol] 52 mg/dL Normal [facility] Comment on above: Result Comment: The drugs N-Acetylcysteine and Metamizole may falsely depress this assay. Reference Range HDL <40 mg/dL Low HDL Cholesterol HDL >or= 60 mg/dL High HDL Cholesterol Performed By: #### L 501.0100, L500.4100 #### [facility] [address] [place], [address] Cholesterol in LDL [Mass/Vol] 75 mg/dL Normal 0-130 [facility] Comment on above: Performed By: #### L 501.0100, L500.4100 #### [facility] [address] [place], [address] Cholesterol in VLDL [Mass/Vol] 29 mg/dL Normal 5-40 [facility] Comment on above: Performed By: #### L 501.0100, L500.4100 #### [facility] [address] [place], [address] Triglyceride [Mass/Vol] 145 mg/dL Normal [facility] Comment on above: Result Comment: The drugs N-Acetylcysteine and Metamizole may falsely depress this assay. Serum Triglycerides Reference Interval Normal <150 mg/dL Borderline high 150 - 199 mg/dL High 200 - 499 mg/dL Very High > or = 500 mg/dL Performed By: #### L 501.0100, L500.4100 #### [facility] [address] [place], [address] Culture, urineOrdered By: Tao Chapin on 10-17-2023 Bacteria identified Cx Nom (U) Presumptive E. coli [facility] Basophil percentageOrdered B y: Dr. Chapin on 12-03-2022 Cholesterol [Mass/Vol] 146 mg/dL <200 [facility] Comment on above: <200 mg/dL Desirable 200-240 mg/dL Borderline >240 mg/dL High Risk Glucose [Mass/Vol] 114 mg/dL 74-106 [facility] Comment on above: Fasting Glucose resu lt from 100 to 125 mg/dL suggests IMPAIRED HOMEOSTASIS per A.D.A. criteria. Triglyceride [Mass/Vol] 79 mg/dL <199 [facility] Comment on above: The drugs N-Acetylcy steine and Metamizole may falsely depress this assay.Serum Triglycerides Reference Interval Normal <150 mg/dL Borderline high 150 - 199 mg/dL High 200 - 499 mg/dL Very High > or = 500 mg/dL Serum or plasma cholesterol in HDL measurement (mass/volume)Ordered By: Dr. Chapin on 12-03-2022 Cholesterol in HDL [Mass/Vol] 43 mg/dL >40 [facility] Comment on above: The drugs N-Acetylcy steine and Metamizole may falsely depress this assay. Reference Range HDL <40 mg/dL Low HDL Cholesterol HDL >or= 60 mg/dL High HDL Cholesterol Serum or plasma cholesterol in VLDL measurement (mass/volume)Ordered By: Dr. Chapin on 12-03-2022 Cholesterol in VLDL [Mass/Vol] 16 mg/dL 5-40 [facility] Serum or plasma low density lipoprotein (LDL) cholesterol measurement (mass/volume)Ordered By: Dr. Chapin on 12-03-2022 Cholesterol in LDL [Mass/Vol] 87 mg/dL 0-130 [facility] Vital Signs Date Time Vital Sign Value Performing Clinician Faci lity 04-07-2025 09:52-0400 Body height 165.[address] Eliezer Chapin DO Work Phone: [facility] 04-07-2025 09:52-0400 Body mass index (BMI) [Ratio] 26.2 kg/m2 Dr. Eliezer Chapin DO Work Phone: [facility] 04-07-2025 09:52-0400 Body weight 71.[address] Eliezer Chapin DO Work Phone: [facility] 04-07-2025 09:52-0400 Diastolic blood pressure 76 mm[Hg] Dr. Eliezer Chapin DO Work Phone: [facility] 04-07-2025 09:52-0400 Systolic blood pressure 123 mm[Hg] Dr. Eliezer Chapin DO Work Phone: [facility] Encounters Encounter Date Encounter Type Care Provider Facility Start: 04-07-2025 End: 04-07-2025 ambulatory [facility] Facility:[facility] Start: 04-07-2025 End: 04-07-2025 Patient encounter procedure Leatha Crawford SEPTIC PUMP TRUCK DRIVER-C -[facility] Work Phone: Start: 04-07-2025 End: 04-07-2025 Patient encounter status Leatha Crawford NP-[facility] Start: 05-14-2024 Encounter for genera l adult medical examination without abnormal findings [facility] Start: 04-10-2024 End: 04-10-2024 ambulatory [facility] Facility:[facility] Start: 10-17-2023 End: 10-17-2023 ambulatory [facility] Work Phone: Start: 10-17-2023 End: 10-17-2023 Patient encounter procedure [facility] Work Phone: Start: 12-03-2022 End: 12-03-2022 ambulatory [facility] Work Phone: Start: 12-03-2022 End: 12-03-2022 Patient encounter procedure [facility]-Cookie Villalpando [facility] Procedures Date Procedure Procedure Detail Performing Clinician Start: 10-17-2023 Urine culture Plan of Treatment Date Care Activity Detail Author Start: 04-07-2025 Bacteria identified in Urine by Culture Urine Culture [facility] Start: 04-07-2025 [facility] MG Breast - bilatera l Screening [facility] Urine culture [facility] Immunizations Immunization Date Immunization Notes Care Provider Brittany kee 07-02-2020 influenza, injectabl e, quadrivalent, preservative free [facility] 07-02-2020 influenza, seasonal, injectable [facility] 06-09-2017 influenza, injectabl e, quadrivalent, preservative free [facility] 06-09-2017 influenza, seasonal, injectable [facility] Payers Date Payer Category Payer Self-pay [id number] 2020 Unknown [id number] Unknown [id number] Unknown [id number] Social History Date Type Detail Facility Start: 07-01-2020 End: 07-01-2020 Tobacco smoking status NHIS Unknown if ever smoked [facility] Start: 07-08-2019 Non-smoker [facility] Start: 1990 Sex Assigned At Female [facility] Start: 04-07-2025 Tobacco smoking stat us IAIS Never smoked tobacco (finding) [facility] Evaluation note Note Date & Type Note Facility Evaluation note No assessment information availa ble [facility] Work Phone: Evaluation note Note Date & Type Note Facility Evaluation note Diagnosis Onset Date Resolution Encounter for routine gynecological examination noneactive April 07, 2025 9:46am [facility] Work Phone: Reason for referral (narrative) Note Date & Type Note Facility Reason for referral (narrative) No reason for referral information available [facility] Work Phone: Advance Directives Advance Directive Response Recorded Date/ Time Living Will No July 01 5:02am Power of Vmware Engineer No July 01, 2020 5:02am Advance Directive Response Recorded Date/ Time Living Will No July 01 4:02am Power of Vmware Engineer No July 01, 2020 4:02am Summary Purpose Family History Relationship Condition Age at Onset Recorded Date/T [place] grandmother Malignant neoplasm of breast 37 Chief Complaint and Reason for Visit Chief Complaint Admit Date Annual ([employer] NETWORK [employer]ELOPMENT) April 07, 2025 9:46 am Reason for Visit Admit Date Encounter for routine gynecological exam ination April 07, 2025 9:46am Additional Source Comments Care Teams (unrecognized sec tion and content) Team Status: Active Member Role Status Dates Dr. Eliezer Chapin DO Family Provider Active Dr. Eliezer Chapin DO Primary Care Provider Active Team Status: Inactive Member Role Status Dates Dr. Eliezer Chapin DO Primary Care Prov ider, Attending Provider, Referring Provider Active Team Status: Inactive Member Role Status Dates Dr. Eliezer Chapin DO Primary Care Provider, Attendin g Provider Active Team Status: Active Member Role/Relationship Status Dates Dr. Eliezer Chapin DO Family Provider Active Dr. Eliezer Chapin DO Primary Care Provider Active Team Status: Inactive Member Role/Relationship Status Dates Dr. Eliezer Chapin DO Primary Care Provider Active Start: April 07, 2025 End: April 07, 2025 Dr. Eliezer Chapin DO Referring Provider Active Start: April 07, 2025 End: April 07, 2025 ZAHRA Daly Attending Provider Active Start: April 07, 2025 End: April 07, 2025 Team Status: Active Member Role/Relationship Status Dates Dr. Eliezer Chapin DO Primary Care Provider Active Start: April 07, 2025 ZAHRA Daly Attending Provider Active Start: April 07, 2025 Goals (unrecognized section and content) Goals may be documented in a n alternate sectionGoals may be documented in an alternate sectionGoals may be documented in an alternate section INFORMATION SOURCE (unrecogn ized section and content) DATE CREATED AUTHOR 2025 [facility] FOR RECORDS PERTAINING TO PATIENTS WHO ARE OR HAVE BEEN ENROLLED IN A CHEMICAL DEPENDENCY/SUBSTANCEABUSE PROGRAM, SOME INFORMATION MAY BE OMITTED. This clinical summary was aggregated from multiple sources. Caution should be exercised in using it in the provision of clinical care. This summary normalizes information from multiple sources, and as a consequence, information in this document may materially change the coding, format and clinical context of patient data. In addition, data may be omitted in some cases. CLINICAL DECISIONS SHOULD BE BASED ON THE PRIMARY CLINICAL RECORDS. [facility]. provides no warranty or guarantee of the accuracy or completeness of information in this document.
[2025-04-09 16:09] LABS: HPV APTIMA, High Risk Negative (Negative)
== END | disposition home or self-care (01) ==
LOC: LABSPEC 10:23
PROVIDERS: PCP Family Medicine; Visit Provider Nurse Practitioner Family
DX: R82.998 Other abnormal findings in urine (principal)
CPT/HCPCS: 87086; 87088; 87186; 87624; 88175; G0145

== ENCOUNTER → 2025-04-09 | Outpatient (CLI) | payer BC, SELFPAY ==
--- NOTE | 2025-04-09 13:45 | BI_ITS ---
EXAM: SCRN MAMM (CAD)W/KHARI BILAT DATE: 04/09/2025 CLINICAL HISTORY: F, Age 35 y/o , SCREEN FOR BREAST CANCER TECHNIQUE: SCRN MAMM (CAD)W/KHARI BILAT COMPARISON: Baseline exam . FINDINGS: TISSUE DENSITY: The breasts are extremely dense, which lowers the sensitivity of mammography. Bilateral Breast Mammographic Findings: No suspicious masses, calcifications or other abnormalities are identified. BI/SCRN MAMM (CAD)W/KHARI BILAT IMPRESSION: No mammographic evidence of malignancy in either breast OVERALL FINAL ASSESSMENT BI-RADS 1: NEGATIVE. RECOMMENDATION: Routine annual follow-up in 1 Year A letter with findings and recommendations will be mailed to the patient. Reading Location: [id number]
--- NOTE | 2025-04-09 13:55 | US_ITS ---
PROCEDURE: PELVIC W/ TRANSVAGINAL REASON FOR EXAM: ENLARGED UTERUS TECHNIQUE: PELVIC W/ TRANSVAGINAL COMPARISON: None FINDINGS: Measurements: Uterus: 9.3 cm x 6.2 cm x 4.4 cm with a volume of 130.95 mL. Findings suggestive of a 9 mm x 4 mm x 5 mm vascular polyp in the cervix. Endometrial Thickness: 4.9 mm. It is trilaminar. Right Ovary: 5.1 cm x 3.7 cm x 3.5 cm with a volume of 34.79 mL. There is a 3.5 cm x 3 cm x 3.2 cm septated cyst. Left Ovary: 2.6 cm x 1.6 cm x 2.4 cm with a volume of 5.1 cm mL. TRANSABDOMINAL: Uterus: Unremarkable Endometrium: Unremarkable. Findings suggestive of a 9 mm x 4 mm x 5 mm cervical polyp. Right ovary: 3.5 cm x 3 cm x 3.2 cm septated cyst. Left ovary: Normal size and echotexture. Other: No large pelvic mass identified. Transvaginal sonography was performed as transabdominal imaging did not explain the patient's presenting symptoms. TRANSVAGINAL: Uterus: Retroverted. 9 mm x 4 mm x 5 mm cervical polyp. Endometrium: Normal echotexture. Right ovary: 3.5 cm x 3 cm x 3.2 cm septated cyst. Follow-up recommended. Left ovary: Normal size and echotexture. Other adnexal findings: None. Cul-de-sac: No free intraperitoneal fluid identified. Tenderness: No tenderness US/Pelvic w/ Transvaginal IMPRESSION: Findings suggestive of a small cervical polyp. Septated cyst in the right ovary. Follow-up recommended. Reading Location: [id number]
== END | disposition home or self-care (01) ==
LOC: US 13:31
PROVIDERS: PCP Family Medicine; Referring Provider Nurse Practitioner Family; Visit Provider Nurse Practitioner Family
DX: Z12.31 Encounter for screening mammogram for malignant neoplasm of breast (principal); N85.2 Hypertrophy of uterus
CPT/HCPCS: 76830; 76856; 77063; 77067

== ENCOUNTER → 2025-04-28 | Outpatient (CLI) | payer BC, SELFPAY ==
--- OUTSIDE RECORDS SUMMARY | 2025-04-28 10:21 | XMS RPT_ITS | CCD ---
Author Organization [facility] InformFormerly [facility], [facility] Care Team Providers Care Brass Roller Name Role Phone Dr. Eliezer Chapin DO Primary Care Provider Dr. Eliezer Chapin DO Referring Provider Yvette LIFESTYLE CONSULTANTYadiCLeatha Attending Provider Yvette LIFESTYLE CONSULTANT-CLeatha Referring Provider [phone] Eliezer Chapin Referring Unavailable Eliezer Chapin Primary Care Unavailable Rowena Marie Attending Unavailabl e Eliezer Chapin Primary Care Unavailable Leatha Crawford Attending Unavailable Eliezer Chapin Primary Care Unavailable Leatha Crawford Referring Unavailable Leatha Crawford Attending Unavailable Eliezer Chapin Referring Unavailable Eliezer Chapin Primary Care Unavailable Leatha Crawford Attending Unavailable Dr. Rowena Marie DO Attending Provider Medications Current Medications Medication Drug Class(es) Dates Sig (Normalized) Sig (Original) [id number] 200 actuat albuterol 0.09 mg/actuat metered dose inhaler (6 sources) beta2-Adrenergic Agonist Start: 07-08-2019 Albuterol Sulfate 1 INHALER inhaler Active 1 - 2 NMA INHALATION EVERY 4 HOURS NEEDED as needed for Asthma July 08, 2019 12:00am Start: 07-08-2019 take 1 puff(s) by in halation every four hours as needed Albuterol Sulfate Active 1 - 2 PUFF inhalation EVERY 4 HOURS NEEDED July 07, 2019 11:00pm Norgestimate-Ethinyl Estradiol (16 sources) Progestin, Estrogen Start: 04-07-2025 take 0.25 tablet by mouth once daily Norgestimate-Ethinyl Estradiol (Sally) 0.25-0.035 mg tablet Active 1 {tbl} PO DAILY 84 4 April 07, 2025 10:16am Start: 11-25-2024 End: 04-07-2025 Norgestimate-Ethinyl Estradi ol (Sally) 0.25-35 mg-mcg tablet Discontinued 1 {tbl} PO DAILY 84 1 November 25, 2024 4:21pm April 07, 2025 10:17am Start: 03-18-2024 End: 11-25-2024 Norgestimate-Ethinyl Estradi ol (Sally) 0.25-35 mg-mcg tablet Discontinued 1 {tbl} PO DAILY 84 2 March 18, 2024 10:25am November 25, 2024 4:21pm Start: 03-18-2024 End: 03-18-2024 Norgestimate-Ethinyl Estradi ol (Sally) 0.25-35 mg-mcg tablet Discontinued 1 {tbl} PO DAILY March 18, 2024 12:00am March 18, 2024 10:26am loratadine 10 mg oral tablet (6 sources) Start: 07-01-2020 take 1 tablet by mouth once daily Loratadine 10 MG tablet Active 10 mg PO DAILY July 01, 2020 12:00am allergies montelukast 10 mg oral tablet (4 sources) Leukotriene Receptor Antagonist Start: 03-18-2024 take 1 [...] Drug Class(es) Dates Sig (Normalized) Sig (Original) nitrofurantoin, macrocrystals 25 mg / nitrofurantoin, monohydrate 75 mg oral capsule (3 sources) Nitrofuran Antibacterial Start: 04-09-2025 End: 04-14-2025 take 1 capsule by mouth every twelve hours at mealtime Nitrofurantoin Monohyd/M-Cryst (Macrobid) 100 mg capsule Discontinued 100 mg PO Q12H 10 5 0 April 09, 2025 12:00am April 13, 2025 12:00am April 14, 2025 12:08am must administer with a meal/food Pnv Cmb#95-Ferrous Fumarate-Fa 1 EACH tablet (4 sources) Start: 07-01-2020 End: 04-07-2025 Pnv Cmb#95-Ferrous Fumarate-Fa 1 EACH tablet Discontinued 1 {tbl} PO DAILY July 01, 2020 12:00am April 07, 2025 9:59am Problems Problem Classification Problem Date Documented Da te Episodic/Chronic Genitourinary symptoms and ill-defined conditions (9 sources) Urinary incontinence; Translations: [Urge incontinence of urine] Chronic Genitourinary symptoms and ill-defined conditions (10 sources) Abnormal urine odor; Translations: [Unspecified abnormal findings in urine] Onset: 04-07-2025 04-07-2025 Episodic Other female genital disorders (6 sources) Enlarged uterus; Translations: [Hypertrophy of uterus] 04-07-2025 Episodic Other female genital disorders (2 sources) Polyp of cervix; Translations: [Polyp of cervix uteri] 04-28-2025 Episodic Other screening for suspected conditions (not mental disorders or infectious disease) (1 source) Encounter for screening mammogram for malignant neoplasm of breast; Translations: [Encounter for screening mammogram for malignant neoplasm of breast] Onset: 04-17-2025 Episodic Ovarian cyst (2 sources) Cyst of ovary; Translations: [Unspecified ovarian cyst, unspecified side] 04-28-2025 Episodic Spontaneous (6 sources) Complete inevitable miscarriage without complication; Translations: [Complete or unspecified spontaneous without complication] 06-27-2019 Episodic Unclassified (6 sources) R32 - Unspecified urinary incontinence Results Test Name Value Interpretation Reference Range Facility Breast imaging reportOrdered By: Bela Moreno on 04-09-2025 Study report [facility] Imaging Services [address] [place], [place] [id number] SCRN MAMM (CAD)W/KHARI OSBORN MR#: [id number] Acct: [id number] Name: AMELIA ALVARADO Rep #: [id number] : 1990 F 35 From: Flaco Oshea MD PCP: Dr. Eliezer Chapin, Status: REG CLI Study:SCRN MAMM (CAD)W/KHARI BILAT Date of Exa m: 04/09/25 Exam# [id number] Ordering Dr: Leatha Crawford LIFESTYLE CONSULTANT-C EXAM: SCRN MAMM (CAD)W/KHARI BILAT DATE: 04/09/2025 CLINICAL HISTORY: F, Age 35 y/o , SCREEN FOR BREAST CANCER TECHNIQUE: SCRN MAMM (CAD)W/KHARI BILAT COMPARISON: Baseline exam . FINDINGS: TISSUE DENSITY: The breasts are extremely dense, which lowers the sensitivity ofmammography. Bilateral Breast Mammographic Findings: No suspicious masses, calcifications or other abnormalities are identified. BI/SCRN MAMM (CAD)W/KHARI BILAT IMPRESSION: No mammographic evidence of malignancy in either breast OVERALL FINAL ASSESSMENT BI-RADS 1: NEGATIVE. RECOMMENDATION: Routine annual follow-up in 1 Year A letter with findings and recommendations will be mailed to the patient. Reading Location: [id number] CC: LIFESTYLE CONSULTANTTrav Crawford; Dr. Eliezer Chapin DO ~ Oracle Developer: Signed [facility] PAP IG HPV APTIMA 16/18,45on 04-09-2025 ADEQ Comment Normal . [facility] Comment on above: Order Comment: Speci men Comment: [id number] Specimen Comment: No. of containers..01 ThinPrep Vial Result Comment: Sati sfactory for evaluation. Endocervical and/or squamous metaplastic cells (endocervical component) are present. Performed By: #### L 7400.0280 #### [facility] Laboratory [address] [place], [place], [id number] COMM . Normal . [facility] Comment on above: Order Comment: Speci men Comment: [id number] Specimen Comment: No. of containers..01 ThinPrep Vial Performed By: #### L 7400.0280 #### [facility] Laboratory [address] [place], [place], [address] COMMENT Comment Normal . [facility] Comment on above: Order Comment: Speci men Comment: [id number] Specimen Comment: No. of containers..01 ThinPrep Vial Result Comment: This liquid based ThinPrep(R) pap test was screened with the use of an image guided system. Performed By: #### L 7400.0280 #### [facility] Laboratory [address] [place], [place], [address] DIAG Comment Normal . [facility] Comment on above: Order Comment: Speci men Comment: [id number] Specimen Comment: No. of containers..01 ThinPrep Vial Result Comment: NEGA TIVE FOR INTRAEPITHELIAL LESION OR MALIGNANCY. Performed By: #### L 7400.0280 #### [facility] Laboratory [address] [place], [place], [address] HPV APTIMA, HR Negative Normal Negative [facility] Comment on above: Order Comment: Speci men Comment: [id number] Specimen Comment: No. of containers..01 ThinPrep Vial Result Comment: This nucleic acid amplification test detects fourteen high- risk HPV types (16,18,31,33,35,39,45,51,52,56,58,59,66,68) without differentiation. Performed By: #### L 7400.0280 #### [facility] Laboratory [address] [place], [address] HPV Jamilah Rfx Comment Normal . [facility] Comment on above: Order Comment: Speci men Comment: [id number] Specimen Comment: No. of containers..01 ThinPrep Vial Result Comment: Crit eria not met, HPV Genotype not performed. Performed at: [address] [id number] Shingle Packer: Milagro Purvis MD, Phone: [phone] Performed at: =[address] [id number] Shingle Packer: Milagro Purvis MD, Phone: [phone] Performed By: #### L 7400.0280 #### [facility] Laboratory [address] [place], [place], [id number] PAPSMR Comment Normal . [facility] Comment on above: Order Comment: Speci men Comment: [id number] Specimen Comment: No. of containers..01 ThinPrep Vial Result Comment: The Pap smear is a screening test designed to aid in the detection of premalignant and malignant conditions of the uterine cervix. It is not a diagnostic procedure and should not be used as the sole means of detecting cervical cancer. Both false-positive and false-negative reports do occur. Performed By: #### L 7400.0280 #### [facility] Laboratory [address] [place], [place], [address] PERFORM Comment Normal . [facility] Comment on above: Order Comment: Speci men Comment: [id number] Specimen Comment: No. of containers..01 ThinPrep Vial Result Comment: Yanet Wu Physician Internist (ASCP) Performed By: #### L 7400.0280 #### [facility] Laboratory [address] [place], [place], [address] Pelvic w/ Transvaginalon Pelvic w/ Transvaginal [facility] Imaging Services [address] [place], [place] [address] Pelvic w/ Transvaginal MR#: [id number] Acct: [id number] Name: AMELIA ALVARADO Rep #: [id number] : 1990 F 35 From: Grayson ceron MD PCP: Dr. Eliezer Chapin, DO Status: REG CLI Study: Pelvic w/ Transvaginal Date of Exam: 04/09/25 Exam# [id number] Ordering Dr: Leatha Crawford LIFESTYLE CONSULTANT-C PROCEDURE: PELVIC W/ TRANSVAGINAL REASON FOR EXAM: ENLARGED UTERUS TECHNIQUE: PELVIC W/ TRANSVAGINAL COMPARISON: None FINDINGS: Measurements: Uterus: 9.3 cm x 6.2 cm x 4.4 cm with a volume of 130.95 mL. Findings suggestive of a 9 mm x 4 mm x 5 mm vascular polyp in the cervix. Endometrial Thickness: 4.9 mm. It is trilaminar. Right Ovary: 5.1 cm x 3.7 cm x 3.5 cm with a volume of 34.79 mL. There is a 3.5 cm x 3 cm x 3.2 cm septated cyst. Left Ovary: 2.6 cm x 1.6 cm x 2.4 cm with a volume of 5.1 cm mL. TRANSABDOMINAL: Uterus: Unremarkable Endometrium: Unremarkable. Findings suggestive of a 9 mm x 4 mm x 5 mm cervical polyp. Right ovary: 3.5 cm x 3 cm x 3.2 cm septated cyst. Left ovary: Normal size and echotexture. Other: No large pelvic mass identified. Transvaginal sonography was performed as transabdominal imaging did not explain the patient's presenting symptoms. TRANSVAGINAL: Uterus: Retroverted. 9 mm x 4 mm x 5 mm cervical polyp. Endometrium: Normal echotexture. Right ovary: 3.5 cm x 3 cm x 3.2 cm septated cyst. Follow-up recommended. Left ovary: Normal size and echotexture. Other adnexal findings: None. Cul-de-sac: No free intraperitoneal fluid identified. Tenderness: No tenderness US/Pelvic w/ Transvaginal IMPRESSION: Findings suggestive of a small cervical polyp. Septated cyst in the right ovary. Follow-up recommended. Reading Location: [id number] CC: ZAHRA Crawford; Dr. Eliezer Chapin DO Oracle Developer: Signed Normal [facility] SCRN MAMM (CAD)W/KHARI BILATo n 04-09-2025 SCRN MAMM (CAD)W/KHARI BILAT [facility] Imaging Services [address] [place], [place] [address] SCRN MAMM (CAD)W/KHARI BILAT MR#: [id number] Acct: [id number] Name: SANTOSMARYAMELIA Rep #: [id number] : 1990 F 35 From: Bela Quintero i, MD PCP: Dr. Eliezer Chapin DO Status: REG CLI Study: SCRN MAMM (CAD)W/KHARI BILAT Date of Exam: 10/03 Exam# [id number] Ordering Dr: Leatha Crawford LIFESTYLE CONSULTANT-C EXAM: SCRN MAMM (CAD)W/KHARI BILAT DATE: 04/09/2025 CLINICAL HISTORY: F, Age 35 y/o , SCREEN FOR BREAST CANCER TECHNIQUE: SCRN MAMM (CAD)W/KHARI BILAT COMPARISON: Baseline exam . FINDINGS: TISSUE DENSITY: The breasts are extremely dense, which lowers the sensitivity of mammography. Bilateral Breast Mammographic Findings: No suspicious masses, calcifications or other abnormalities are identified. BI/SCRN MAMM (CAD)W/KHARI BILAT IMPRESSION: No mammographic evidence of malignancy in either breast OVERALL FINAL ASSESSMENT BI-RADS 1: NEGATIVE. RECOMMENDATION: Routine annual follow-up in 1 Year A letter with findings and recommendations will be mailed to the patient. Reading Location: [id number] CC: LIFESTYLE CONSULTANT-C Leatha Crawford; Dr. Eliezer Chapin DO Oracle Developer: Signed Normal [facility] Urine Cultureon 04-09-2025 URC Presumptive E. coli [place] Count >100,000 Presumptive E. coli: REACTION Ampicillin Islt SHAHID <=2 Ampicillin+Sulbac Islt SHAHID <=2 S Cefepime Islt SHAHID <=0.12 S cefTRIAXone Islt SHAHID <=0.25 S Ciprofloxacin Islt SHAHID <=0.06 S B-Lactamase Extended Susc Islt NEG Gentamicin Islt SHAHID <=1 S levoFLOXacin Islt SHAHID <=0.12 S Meropenem Islt SHAHID <=0.25 S Nitrofurantoin Islt SHAHID <=16 S Pip+Tazo Islt SHAHID <=4 S TMP SMX Islt SHAHID <=20 S Normal [facility] Comment on above: Performed By: #### M 100.9688 #### [facility] Laboratory [facility] [address] [place], [place], [id number] Cervical or vaginal specimen microscopic examination by liquid based cytology (reportOrdered By: Leatha Crawford on 04-07-2025 Cytology report Cyto stain.thin prep Doc (Cvx/Vag) Comment . [facility] Comment on above: Criteria not met, HP V Genotype not performed.Performed at: - [facility] [id number] Director: Milagro Purvis MD, Phone: [phone] at: = - [facility] [id number] Director: Milagro Purvis MD, Phone: [phone] Cervical or vagninal specime n microscopic examination by cytology stain (reported asOrdered By: Leatha Crawford on 04-07-2025 Cytology report Cyto stain Doc (Cvx/Vag) Comment . [facility] Comment on above: The Pap smear is a s creening test designed to aid in thedetection of premalignant and malignant conditions of theuterine cervix. It is not a diagnostic procedure andshould not be used as the sole means of detecting cervicalcancer. Both false-positive and false-negative reports dooccur. Detection in cervical specim en of any of human papilloma virus (HPV) 16, 18, 31, 33,Ordered By: Leatha Crawford on 04-07-2025 HPV 16+18+31+33+35+39+45+51 +52+56+58+59+66+68 DNA Probe+sig amp Ql (Cvx) Negative Negative [facility] Comment on above: This nucleic acid am plification test detects fourteen high-risk HPV types (16,18,31,33,35,39,45,51,52,56,58,59,66,68)without differentiation. Laboratory - Chemistry and C hemistry - challengeOrdered By: Leatha Crawford on 04-07-2025 Bilirubin Ql (U) Negative [facility] Glucose Ql (U) Negative [facility] Ketones Ql (U) Negative [facility] pH (U) 6.5 [pH] [facility] Specific gravity (U) [Rel density] 1.020 [facility] Urobilinogen (U) [Mass/Vol] Negative [facility] Laboratory - CytologyOrdered By: Leatha Crawford on 04-07-2025 Physician Internist Cyto stain Nom (Cvx/Vag) [ID] Comment . [facility] Comment on above: Amina Wu, Physician Internist (ASCP) Laboratory - Hematology and Cell countsOrdered By: Leatha Crawford on 04-07-2025 Hemoglobin Ql (U) Negative [facility] Laboratory - Miscellaneous t estsOrdered By: Leatha Crawford on 04-07-2025 Service comment (Unsp spec) [Interp] . . [facility] Laboratory - Specimen inform ationOrdered By: Leatha Crawford on 04-07-2025 Clarity (U) Cloudy [facility] Color (U) [place] [facility] Laboratory - UrinalysisOrder ed By: Leatha Crawford on 04-07-2025 Nitrite Ql (U) Negative [facility] Protein Ql (U) Negative [facility] No Panel InformationOrdered By: Leatha Crawford on 04-07-2025 Pap Smear Specimen Adequacy Comment . [facility] Comment on above: Satisfactory for dinora luation. Endocervical and/or squamous metaplasticcells (endocervical component) are present. Urine Leukocytes Positive [facility] Urine Non-Hemolyzed Blood [facility] Advisor To Command In [employer] Office Visit Reporton 04-07-2025 Advisor To [employer] In [employer] Office Visit Report [facility] [address], [address] [place] [address] OFFICE VISIT Date of Service: 04/07/25 MR#: [id number] Acct: [id number] Name: AMELIA ALVARADO Onelia Rep #: [id number] : 1990 Provider: ZAHRA Calvo Age/Sex: 35/F Location: [facility] Status: Signed Intake Vital Signs 03/18/24 09:24 04/07/25 09:52 Height 5 ft 5 in 5 ft 5 in Weight: 158 lb BMI 26.2 BP 123/76 H 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: No Is patient in pain?: No Allergies No Known Allergies Allergy (Verified 04/07/25 09:59) Medications ???Medication ???Instructions ???Recorded ???Confirmed ???Type albuterol sulfate 90 mcg/actuation 1 - 2 puff inhalation Q4H PRN AK N 07/08/19 04/07/25 History aerosol inhaler Asthma loratadine 10 mg tablet 10 mg PO DAILY allergies 07/01/20 04/07/25 History montelukast 10 mg tablet 10 mg PO DAILY 03/18/24 04/07/25 H istory (Singulair) norgestimate 0.25 mg-ethinyl 1 tab PO DAILY #84 tabs 04/07/25 0 04/07/25 Rx estradiol 0.035 mg tablet (Sally) Is last menstrual period known: Yes Last Menstrual Period: 03/24/25 Post menopausal: No Patient : No : No Control Method: ocp- sally [facility] Surgical History H/O dilation and curettage Family History (Updated 04/07/25 @ 10:19 by Cece Bender) Grandmother Breast cancer, Onset Age: 37 Social History household members: family number of children: 2 current occupational status: employed current occupation: [employer] pets and animals: Yes sexually active: Yes Smoking Status: Never smoker alcohol intake: never substance use type: does not use caffeine: No eating out: rarely or never during the past year weight has: remained stable margaret/samaritan: Confucianist seatbelt use: always do you feel safe at home: Yes additional social history: - Aaron. Poe History 3 Elective abortions Hx Para 2 Spontaneous abortions 1 Hx # Term Pregnancies 2 Ectopic pregnancies Hx # Pregnancies Multiple births # of living children 2 Past Pregnancies Del. Date Name GA/Weeks Outcome Route Bth Weight Gen Labor Lgth Anesthesia Del Locatn Provider FOB 06/07/17 Sg live - full term [facility] 07/01/20 Tristan live - full term [facility] HPI Encounter for routine gynecological examination Details: AMELIA ALVARADO is a 35 year old who presents for annual exam. She reports she has noticed an odor to her urine for the past week. Along with this she reports pelvic pressure/bloating and fullness. Denies traditional signs of UTI. Reports her menses are regular; still taking OCP compliantly and happy with this. Last PAP: 2021; normal; no HPV ran History of abnormal PAP: no Last mammogram: age 40 History of abnormal mammogram: n/a Colon cancer screening: age 45 Other preventative health care screenings: Eliezer Chapin; PCP Female Reproductive History Last Menstrual Period: 03/24/25 Cycle Length: 21-35 Bleeding Duration: 5 Questions: metrorrhagia: No, sexually active: Yes, dyspareunia: No and PCB: No ROS Const Constitutional: Denies chills, fatigue, fever(s), headache(s) or weight loss Eyes Eyes: Denies change in vision ENT ENT: Denies dizziness Resp Resp: Denies cough GI GI: Denies abdominal pain, constipation or nausea : Reports as per HPI (denies hematuria) and pelvic pain (pressure/bloating.); Denies difficulty voiding, dysuria, hematuria, prolapse symptoms, urinary incontinence, vaginal discharge, vaginal dryness, vaginal odor or vaginal pruritus Skin Skin/Breast: Denies alopecia or rash Neuro Neuro: Denies dizziness Psych Psych: Denies anxiety or depression Endo Endo: Denies cold intolerance, excessive sweating or heat intolerance Exam Const General: cooperative, healthy appearing, comfortable, no acute distress, well groomed and well hydrated Nutritional Appearance: well nourished Orientation: alert, awake and oriented x3 HENMT Head: normal to inspection and normocephalic Ears: hearing grossly normal bilaterally and external ears normal Nose: external nose normal Face and sinus: normal facial exam Eyes General: appearance normal, both eyes and all related structures Neck Neck: normal visual inspection, full ROM and no lymphadenopathy Thyroid: thyroid normal Chest Chest palpation inspection: normal inspection of the chest Breast inspection: normal inspection of the breasts and normal inspection of the axillae Breast palpation: normal palpation of the breasts, normal palpation of the axillae and no axillary lymphadenopathy Resp Effort Inspection: normal respiratory effort (more content not included)... Normal [facility] Urine cultureOrdered By: Marcio Crawford on 04-07-2025 Bacteria identified Cx Nom (U) Presumptive E. coli Abnormal [facility] Culture, urineOrdered By: Tao Chapin on 10-17-2023 Bacteria identified Cx Nom (U) Presumptive E. coli [facility] Basophil percentageOrdered B y: Dr. Chapin on 12-03-2022 Cholesterol [Mass/Vol] 146 mg/dL <200 [facility] Comment on above: <200 mg/dL Desirable 200-240 mg/dL Borderline >240 mg/dL High Risk Glucose [Mass/Vol] 114 mg/dL 74-106 [facility] Comment on above: Fasting Glucose resu lt from 100 to 125 mg/dL suggests IMPAIRED HOMEOSTASIS per A.D.A. criteria. Triglyceride [Mass/Vol] 79 mg/dL <199 [facility] Comment on above: The drugs N-Acetylcy steine and Metamizole may falsely depress this assay.Serum Triglycerides Reference Interval Normal <150 mg/dL Borderline high 150 - 199 mg/dL High 200 - 499 mg/dL Very High > or = 500 mg/dL Serum or plasma cholesterol in HDL measurement (mass/volume)Ordered By: Dr. Chapin on 12-03-2022 Cholesterol in HDL [Mass/Vol] 43 mg/dL >40 [facility] Comment on above: The drugs N-Acetylcy steine and Metamizole may falsely depress this assay. Reference Range HDL <40 mg/dL Low HDL Cholesterol HDL >or= 60 mg/dL High HDL Cholesterol Serum or plasma cholesterol in VLDL measurement (mass/volume)Ordered By: Dr. Chapin on 12-03-2022 Cholesterol in VLDL [Mass/Vol] 16 mg/dL 5-40 [facility] Serum or plasma low density lipoprotein (LDL) cholesterol measurement (mass/volume)Ordered By: Dr. Chapin on 12-03-2022 Cholesterol in LDL [Mass/Vol] 87 mg/dL 0-130 [facility] Vital Signs Date Time Vital Sign Value Performing Clinician Faci iqan 04-28-2025 08:22-0400 Body height 165.[address] Eliezer Chapin DO Work Phone: [facility] 04-28-2025 08:20-0400 Body mass index (BMI) [Ratio] 25.6 kg/m2 Dr. Eliezer Chapin DO Work Phone: [facility] 04-28-2025 08:20-0400 Body weight 69.[address] Eliezer Chapin DO Work Phone: [facility] 04-28-2025 08:20-0400 Diastolic blood pressure 79 mm[Hg] Dr. Eliezer Chapin DO Work Phone: [facility] 04-28-2025 08:20-0400 Systolic blood pressure 113 mm[Hg] Dr. Eliezer Chapin DO Work Phone: [facility] 04-07-2025 09:52-0400 Body height 165.[address] Eliezer Chapin DO Work Phone: [facility] 04-07-2025 09:52-0400 Body mass index (BMI) [Ratio] 26.2 kg/m2 Dr. Eliezer Chapin DO Work Phone: [facility] 04-07-2025 09:52-0400 Body weight 71.[address] Eliezer Chapin DO Work Phone: [facility] 04-07-2025 09:52-0400 Diastolic blood pressure 76 mm[Hg] Dr. Eliezer Chapin DO Work Phone: [facility] 04-07-2025 09:52-0400 Systolic blood pressure 123 mm[Hg] Dr. Eliezer Chapin DO Work Phone: [facility] Encounters Encounter Date Encounter Type Care Provider Facility Start: 04-28-2025 End: 04-28-2025 ambulatory Eliezer Chapin Facility:[facility] Start: 04-28-2025 End: 04-28-[address] Rowena Marie DO -[facility] Work Phone: Start: 04-09-2025 End: 04-09-[address] Eliezer Chapin DO Work Phone: -Ultrasound [facility] Start: 04-09-2025 End: 04-09-2025 Patient encounter procedure Leatha SWEENEY -Ultrasound [facility] Work Phone: Start: 04-09-2025 End: 04-09-2025 ambulatory Eliezer Chapin Facility:[facility] Start: 04-07-2025 End: 04-07-2025 Patient encounter procedure Leatha BRAYC -[facility] Work Phone: Start: 04-07-2025 End: 04-07-2025 Patient encounter status Leatha SWEENEY [facility] Start: 04-07-2025 End: 04-07-[address] Eliezer Chapin DO Work Phone: -[facility] Start: 04-07-2025 End: 04-07-2025 ambulatory Eliezer Chapin Facility:[facility] Start: 10-17-2023 End: 10-17-2023 ambulatory [facility] Work Phone: Start: 10-17-2023 End: 10-17-2023 Patient encounter procedure [facility]-Laboratory, Specimen Work Phone: Start: 12-03-2022 End: 12-03-2022 ambulatory [facility] Work Phone: Start: 12-03-2022 End: 12-03-2022 Patient encounter procedure [facility]-Laboratory, Cookie Duarte [facility] Procedures Date Procedure Procedure Detail Performing Clinician Start: 04-09-[address] Fitz Chapin DO Work Phone: Start: 04-09-2025 Screening mammography Augustus Chapin DO Work Phone: Start: 04-07-2025 Liquid based cervica l cytology screening Dr. Eliezer Chapin DO Work Phone: Comment on above: NEGATIVE FOR INTRAEP ITHELIAL LESION OR MALIGNANCY. This liquid based Th inPrep(R) pap test was screened withthe use of an image guided system. Start: 04-07-[address] Eliezer Chapin DO Work Phone: Start: 10-17-2023 Urine culture Plan of Treatment Date Care Activity Detail Author Start: 04-28-[address] [facility] Start: 04-07-2025 Bacteria identified in Urine by Culture Urine Culture [facility] Start: 04-07-[address] [facility] MG Breast - bilatera l Screening [facility] Urine culture [facility] Immunizations Immunization Date Immunization Notes Care Provider Fa cility 07-02-2020 influenza, injectabl e, quadrivalent, preservative free [facility] 07-02-2020 influenza, seasonal, injectable [facility] 06-09-2017 influenza, injectabl e, quadrivalent, preservative free [facility] 06-09-2017 influenza, seasonal, injectable [facility] Payers Date Payer Category Payer Self-pay [id number] 2020 Unknown [id number] Unknown [id number] Unknown [id number] Unknown [id number] Unknown [id number] Social History Date Type Detail Facility Start: 07-01-2020 End: 07-01-2020 Tobacco smoking status ALIS Unknown if ever smoked [facility] Start: 07-08-2019 Non-smoker [facility] Start: 1990 Sex Assigned At Female W [facility] Start: 04-07-2025 End: 04-12-2025 Tobacco smoking status NHIS Never smoked tobacco (finding) [facility] Progress note 04-28-2025 Note Date & Type Note Facility 04-28-2025 Progress note [facility] Radiology Diagnostic study note 04-09-2025 Note Date & Type Note Facility 04-09-2025 Radiology Diagnostic study note [facility] Imaging Services [address] [place] [address] Pelvic w/ Transvaginal MR#: [id number] Acct: [id number] Name: AMELIA ALVARADO Rep #: [id number] : 1990 F 35 From: Rodolfo Gold MD PCP: Dr. Eliezer Chapin DO Status: REG CLI Study:Pelvic w/ Transvaginal Date of Exam: 04/09/25 Exam# [id number] Ordering Dr: Leatha Crawford NP-Jacqueline PROCEDURE: PELVIC W/ TRANSVAGINAL REASON FOR EXAM: ENLARGED UTERUS TECHNIQUE: PELVIC W/ TRANSVAGINAL COMPARISON: None FINDINGS: Measurements: Uterus: 9.3 cm x 6.2 cm x 4.4 cm with a volume of 130.95 mL. Findings suggestive of a 9 mm x 4 mm x 5 mm vascular polyp in the cervix. Endometrial Thickness: 4.9 mm. It is trilaminar. Right Ovary: 5.1 cm x 3.7 cm x 3.5 cm with a volume of 34.79 mL. There is a 3.5cm x 3 cm x 3.2 cm septated cyst. Left Ovary: 2.6 cm x 1.6 cm x 2.4 cm with a volume of 5.1 cm mL. TRANSABDOMINAL: Uterus: Unremarkable Endometrium: Unremarkable. Findings suggestive of a 9 mm x 4 mm x 5 mm cervicalpolyp. Right ovary: 3.5 cm x 3 cm x 3.2 cm septated cyst. Left ovary: Normal size and echotexture. Other: No large pelvic mass identified. Transvaginal sonography was performed as transabdominal imaging did not explain the patient's presenting symptoms. TRANSVAGINAL: Uterus: Retroverted. 9 mm x 4 mm x 5 mm cervical polyp. Endometrium: Normal echotexture. Right ovary: 3.5 cm x 3 cm x 3.2 cm septated cyst. Follow-up recommended. Left ovary: Normal size and echotexture. Other adnexal findings: None. Cul-de-sac: No free intraperitoneal fluid identified. Tenderness: No tenderness US/Pelvic w/ Transvaginal IMPRESSION: Findings suggestive of a small cervical polyp. Septated cyst in the right ovary. Follow-up recommended. Reading Location: [id number] CC: ZAHRA Crawford; Dr. Eliezer Chapin, ~ Oracle Developer: Signed [facility] Evaluation note 04-07-2025 Note Date & Type Note Facility 04-07-2025 Evaluation note Diagnosis Onset Date Resolution Abnormal urine odor acute April 07, 2025 9:46am Enlarged uterus acute March 9:46am Urge incontinence acute April 072024 9:46am Encounter for routine gynecological examination noneactive April 07, 2025 9:46am [facility] Work Phone: Evaluation note 04-07-2025 Note Date & Type Note Facility 04-07-2025 Evaluation note Diagnosis Onset Date Resolution Abnormal urine odor acute April 07, 2025 9:46am Enlarged uterus acute March 9:46am Urge incontinence acute April 072024 9:46am Encounter for routine gynecological examination noneactive April 07, 2025 9:46am Cervical polyp acute April 8:17am Ovarian cyst acute April 28, 2025 8:17am Urinary frequency acute April 28, 2025 8:17am [facility] Work Phone: Evaluation note Note Date & Type Note Facility Evaluation note No assessment information availa ble [facility] Work Phone: Evaluation note Note Date & Type Note Facility Evaluation note Diagnosis Onset Date Resolution Encounter for routine gynecological examination noneactive April 07, 2025 9:46am [place] [facility] Work Phone: Progress note Note Date & Type Note Facility Progress note Note Date/Time April 28, 2025 8:58am [facility] [address] [place] [address], [address] [place] [address] OFFICE VISIT Date of Service: 04/28/25 MR#: [id number] Acct: [id number] Name: AMELIA ALVARADO Onelia Rep #: [id number] : 1990 Provider: Dr. Sravani Marie DO Age/Sex: 35/F Location: [facility] Status: Signed Intake Vital Signs 04/07/25 09:52 04/12/25 12:40 04/28/25 08:20 04/28/25 08:22 Height 5 ft 5 in 5 ft 5 in 5 ft 5 in 5 ft 5 in Weight: 158 lb 154 lb BMI 26.2 25.6 BP 123/76 H 113/79 Intake Visit Reasons: surgical consult per CB [employer] Required: No Is patient in pain?: No Allergies No Known Allergies Allergy (Verified 04/28/25 08:20) Medications ?Medication ?Instructions ?Recorded ?Confirmed ?Type albuterol sulfate 90 mcg/actuation 1 - 2 puff inhalati on Q4H PRN PRN 07/08/19 04/28/25 History aerosol inhaler Asthma loratadine 10 mg tablet 10 mg PO DAILY allergies 04/28/25 History montelukast 10 mg tablet 10 mg PO DAILY 03/18/2404/10 History (Singulair) norgestimate 0.25 mg-ethinyl 1 tab PO DAILY #84 tabs 0 04/07/25 04/28/25 Rx estradiol 0.035 mg tablet (Sally) Post menopausal: No Patient : No : No PFSH Surgical History H/O dilation and curettage Family History Grandmother Breast cancer, Onset Age: 37 Social History household members: family number of children: 2 current occupational status: employed current occupation: [employer] pets and animals: Yes sexually active: Yes Smoking Status: Never smoker alcohol intake: never substance use type: does not use caffeine: No eating out: rarely or never during the past year weight has: remained stable margaret/samaritan: Confucianist seatbelt use: always do you feel safe at home: Yes additional social history: - Aaron. [facility] [facility] surgical consult per CB Details: The patient is a 35-year-old female presenting with urinary complaints, Ovarian cyst on ultrasound, and a cervical polyp on ultrasound only. She was seen by Leatha Crawford NP and Leatha did not appreciate a visible polyp. The urinary incontinence began after childbirth and is characterized by an inability to hold urine when the urge arises, leading to leakage if not addressed immediately. This issue has persisted for five years, although it doesnot occur daily. The patient reports attempts to control the leakage by squeezing the pelvic muscles, but these efforts are often ineffective. The cervical polyp was identified during a pelvic ultrasound ordered after a recent examination. Polyps can be benign but may also cause abnormal bleeding orpain, necessitating removal for further evaluation. The patient also has a history of ovarian cysts, which are monitored through ultrasound. The current cyst appears benign, resembling an ovulatory cyst, and will be reassessed in a follow-up ultrasound. Family history is significant for breast, cervical, and ovarian cancer, with thepatient's grandmother and great-grandmother affected. Genetic testing is considered to assess the patient's risk for hereditary cancer syndromes. The patient is currently experiencing a yeast infection, for which she is undergoing treatment with Monistat. She reports improvement in symptoms since starting the treatment. Attestation: Documentation on this patient encounter was supported using ambient scribe technology/ voice AI technology. The patient consented to recording for the purpose of documenting the encounter. Provider reviewed content of the generatednote prior to signature. History 3 Elective abortions Hx Para 2 Spontaneous abortions 1 Hx # Term Pregnancies 2 Ectopic pregnancies Hx # Pregnancies Multiple births # of living children 2 Past Pregnancies Del. Date Name GA/Weeks Outcome Route Bth Weight Infant Gen Labor Lgth Anesthesia Del Locatn Provider FOB 06/07/17 Sg live - full term [facility] 07/01/20 Tristan live - full term [facility] ROS Const ROS Unobtainable: All systems reviewed & are unremarkable except as noted in H Details: - Genitourinary: Reports urinary incontinence post-childbirth, denies daily occurrence. - Reproductive: Reports cervical polyp identified on ultrasound, denies abnormalbleeding. - Dermatological: Reports current yeast infection with pruritus, improving with treatment. Resp Resp: Reports system reviewed and no additional complaints, except as documented; Denies cough GI GI: Reports as per HPI Psych Psych: Reports system reviewed and no additional complaints, except as documented Exam Const General: cooperative, healthy appearing, comfortable and no acute distress Resp Effort & Inspection: normal respiratory effort Skin General: no rashes or lesions noted Psych Appearance: grossly normal Speech and Movement: speech and movement normal Coding Level of Care Code Off vis,est,level 4 Diagnoses Ovarian cyst N83.209 Urinary frequency R35.0 Cervical polyp N84.1 Assessment and Plan Assessment and Plan (1) Ovarian cyst: Status: Acute (2) Urinary frequency: Status: Acute (3) Cervical polyp: Status: Acute Plan Assessment and Plan 35-year-old female with a history of urinary incontinence presenting with concerns about a cervical polyp. The urinary incontinence is likely related to pelvic floor dysfunction post-childbirth, characterized by urgency and inability to retain urine. Pelvic floorexercises and potential urodynamic testing are considered for further evaluation. The cervical polyp, identified on ultrasound, requires removal due to potential risks of abnormal bleeding or malignancy. The procedure may be performed in-office if the polyp is accessible, or under sedation if deeper. The ovarian cyst appears benign, resembling an ovulatory cyst, and will be monitored with a follow-up ultrasound. Family history of breast, cervical, and ovarian cancer necessitates genetic testing to assess hereditary risk. The yeast infection is being treated with Monistat, with noted improvement in symptoms. 1. Urinary Incontinence The patient will be referred for urodynamic testing to assess the underlying cause of urinary incontinence, which may be related to pelvic floor dysfunction post-childbirth. Pelvic floor exercises, including the use of automatic pelvic floor exercisers, are recommended to strengthen the pelvic muscles. 2. Cervical Polyp The cervical polyp will be removed to prevent potential complications such as abnormal bleeding or malignancy. The procedure may be performed in-office if thepolyp is accessible, or under sedation if deeper within the cervix. 3. Ovarian Cyst The ovarian cyst appears benign and will be monitored with a follow-up ultrasound to ensure no changes in size or complexity. 4. Family History Of Breast, Cervical, And Ovarian Cancer Genetic testing will be conducted to assess the patient's risk for hereditary cancer syndromes, given the significant family history. 5. Yeast Infection The patient is currently using Monistat for treatment of the yeast infection, with improvement in symptoms noted. If symptoms persist, Diflucan may be considered as an alternative treatment. 6. pain with intercourse - we discussed position changes. She also has a severe anteverted uterus that we discussed today. we will plan for hysteroscopy D&C after repeat of the ultrasound beginning of may. Patient Instructions: - Follow up with urodynamic testing to evaluate urinary incontinence. - Perform pelvic floor exercises regularly to strengthen muscles. - Schedule removal of cervical polyp as advised by the physician. - Monitor ovarian cyst with follow-up ultrasound as scheduled. - Complete genetic testing to assess cancer risk. - Continue Monistat treatment for yeast infection and report if symptoms persist. 04/28/25 0858 <Electronically signed by Rowena Killian DO> Date _ Rowena Marie DO Cosigner Signature: Date (if applicable) CC: ~ [facility] Work Phone: Reason for referral (narrative) Note Date & Type Note Facility Reason for referral (narrative) No reason for referral information available [facility] Work Phone: Advance Directives Advance Directive Response Recorded Date/ Time Living Will No July 01 5:02am Power of Receiving Worker No July 01, 2020 5:02am Advance Directive Response Recorded Date/ Time Living Will No July 01 4:02am Power of Receiving Worker No July 01, 2020 4:02am Chief Complaint and Reason for Visit Chief Complaint Admit Date Annual (FLY FRAME TENDER) April 07, 2025 9:46 am Reason for Visit Admit Date Encounter for routine gynecological exam ination April 07, 2025 9:46am Chief Complaint Admit Date Annual (FLY FRAME TENDER) April 07, 2025 9:46 am enlarged uterus April 09, 2025 1:2 8pm Reason for Visit Admit Date Abnormal urine odor April 07, 2025 9:46 am Enlarged uterus April 07, 2025 9:46 am Urge incontinence April 07, 2025 9:46 am Encounter for routine gynecological exam ination April 07, 2025 9:46am Chief Complaint Admit Date Annual (FLY FRAME TENDER) April 07, 2025 9:46 am enlarged uterus April 09, 2025 1:2 8pm surgical consult per CB April 28 8:17am Reason for Visit Admit Date Abnormal urine odor April 07, 2025 9:46 am Enlarged uterus April 07, 2025 9:46 am Urge incontinence April 07, 2025 9:46 am Encounter for routine gynecological exam ination April 07, 2025 9:46am Cervical polyp April 28, 2025 8: 17am Ovarian cyst April 28, 2025 8: 17am Urinary frequency April 28, 2025 8: 17am Family History Relationship Condition Age at Onset Recorded Date/T ern[place] grandmother Malignant neoplasm of breast 37 Relationship Condition Age at Onset Recorded Date/T ern[place] grandmother Malignant neoplasm of breast 37 Malignant neoplasm of cervix Unknown unrelated friend Malignant neoplasm of ovary Unknown Summary Purpose Additional Source Comments Care Teams (unrecognized sec [...] Attending Provider Active Start: April 07, 2025 Team Status: Active Member [...] DO Primary Care Provider Active Start: April 09, 2025 ZAHRA Daly Attending Provider Active Start: April 09, 2025 ZAHRA Daly Referring Provider Active Start: April 09, 2025 Team Status: Inactive Member Role/Relationship Status Dates Dr. Eliezer Chapin DO Primary Care Provider Active Start: April 09, 2025 End: April 09, 2025 ZAHRA Daly Attending Provider Active Start: April 09, 2025 End: April 09, 2025 ZAHRA Daly Referring Provider Active Start: April 09, 2025 End: April 09, 2025 Team Status: Inactive Member Role/Relationship Status Dates Dr. Eliezer Chapin DO Primary Care Provider Active Start: April 28, 2025 End: April 28, 2025 Dr. Eliezer Chapin DO Referring Provider Active Start: April 28, 2025 End: April 28, 2025 Dr. Rowena Marie DO Attending Provider Activ e Start: April 28, 2025 End: April 28, 2025 Team Status: Active Member Role/Relationship Status Dates Dr. Eliezer Chapin DO Primary Care Provider Active Start: April 28, 2025 Dr. Rowena Marie DO Attending Provider Activ e Start: April 28, 2025 Goals (unrecognized section and content) Goals may be documented in a n alternate sectionGoals may be documented in an alternate sectionGoals may be documented in an alternate sectionGoals may be documented in an alternate sectionGoals may be documented in an alternate sectionGoals may be documented in an alternate section INFORMATION SOURCE (unrecogn ized section and content) DATE CREATED AUTHOR 04/23/2025 [facility] FOR RECORDS PERTAINING TO PATIENTS WHO ARE [...] BE BASED ON THE PRIMARY CLINICAL RECORDS. [employer] [facility]. provides no warranty or guarantee of the accuracy or completeness of information in this document.
== END | disposition home or self-care (01) ==
LOC: BWCLAB 09:06
PROVIDERS: PCP Family Medicine; Visit Provider Obstetrics & Gynecology
DX: Z80.3 Family history of malignant neoplasm of breast (principal); Z80.41 Family history of malignant neoplasm of ovary
CPT/HCPCS: 36415

== ENCOUNTER → 2025-05-06 | Outpatient (CLI) | payer BC, SELFPAY ==
[2025-05-06 17:00] LABS: Cholesterol 146 mg/dL (<=200); Glucose 86 mg/dL (70-99); Low Density Lipoprotein Calc. 78 mg/dL; Triglycerides 94 mg/dL; Very Low Density Lipoprotein 19 mg/dL (5-40); cholesterol:hdl ratio screen 3.00
== END | disposition home or self-care (01) ==
LOC: LABSPEC 11:06 → BFHLAB 14:00
PROVIDERS: PCP Family Medicine; Visit Provider Family Medicine
DX: Z00.00 Encounter for general adult medical examination without abnormal findings (principal)
CPT/HCPCS: 36415; 80061; 82947

== ENCOUNTER → 2025-05-21 | Outpatient (CLI) | payer BC, SELFPAY ==
--- NOTE | 2025-05-21 08:52 | US_ITS ---
PROCEDURE: PELVIC W/ TRANSVAGINAL REASON FOR EXAM: OVARIAN CYSTS TECHNIQUE: Procedure Code: [id number] Modality: US Procedure: PELVIC W/ TRANSVAGINAL COMPARISON: Prior study dated April 09, 2025. FINDINGS: Measurements: Uterus: 8.9 cm x 6 cm x 4.2 cm with a volume of 117.3 mL Endometrial Thickness: 2 mm Right Ovary: 3.1 cm x 2.1 cm x 1.8 cm with a volume of 6.2 mL. Left Ovary: 3.8 cm x 1.8 cm x 1.4 cm with a volume of 4.9 mL. TRANSABDOMINAL: Uterus: Normal size, myometrial echotexture, and contour. There is an 8 mm x 4 mm x 6 mm echogenic nodule with vascularity in the cervix suggestive of a polyp. This is unchanged. Endometrium: Small amount of fluid is seen within the endometrium. The patient is currently menstruating. Right ovary: Small follicles. The previously seen ovarian cyst has resolved. Left ovary: Normal size and echotexture. Other: No large pelvic mass identified. Transvaginal sonography was performed to better visualize the endometrium. TRANSVAGINAL: Uterus: Retroverted. Findings suggestive of an 8 mm x 4 mm x 6 mm cervical polyp. Endometrium: Normal echotexture. Right ovary: Small follicles. Left ovary: Normal size and echotexture. Other adnexal findings: None. Cul-de-sac: No free intraperitoneal fluid identified. Tenderness: No tenderness US/Pelvic w/ Transvaginal IMPRESSION: Stable findings suggestive of a small polyp in the cervix. Resolution of the previously seen right ovarian cyst. Reading Location: [id number]
== END | disposition home or self-care (01) ==
LOC: US 08:48
PROVIDERS: PCP Family Medicine; Referring Provider Obstetrics & Gynecology; Visit Provider Obstetrics & Gynecology
DX: N85.2 Hypertrophy of uterus (principal); N83.209 Unspecified ovarian cyst, unspecified side
CPT/HCPCS: 76830; 76856

== ENCOUNTER 2025-06-25 10:28 | Day surgery (SDC) | payer BC, SELFPAY ==
[2025-06-15 16:37] LABS: Hematocrit 38.9 % (37-47); Hemoglobin 12.9 g/dL (12.0-15.0); Immature Granulocytes Count 0.010 X10^3/uL (0.0-0.0); Mean Corp Hgb Conc 33.2 g/dL (32-36); Mean Corpuscular Volume 89.0 fL (81-99); Mean Platelet Vol. 11.6 fl (6.2-12.0); NRBC Flagged by Analyzer 0 % (0-5); Platelet Count 165 K/mm3 (150-450); RBC Distribution Width CV 12.9 % (11.6-14.6); RBC Distribution Width SD 42.1 fl (35.1-43.9); Red Blood Count 4.37 M/mm3 (4.2-5.4); White Blood Count 4.5 K/mm3 (4.4-11.0)
[2025-06-25 10:52] LABS: Internal QC Validated? YES +Cl - CLEAR BKGD; Pregnancy, Urine Negative Negative; Record Kit Lot#,Urine Preg 9800607
--- OUTSIDE RECORDS SUMMARY | 2025-06-25 10:52 | XMS RPT_ITS | CCD ---
Author Organization [facility] Care Team Providers Care Orchid Hand Name Role Phone Dr. Eliezer Chapin DO Primary Care Provider Dr. Eliezer Chapin DO Referring Provider Yvette SOLIZ-Leatha Phillips Attending Provider Yvette PRINTING SHOP SUPERVISOR-Leatha Phillips Referring Provider Dr. Rowena Marie DO Attending Provider Dr. Eliezer Chapin DO Attending Provider Dr. Eliezer Chapin DO Primary Care Physician [phone] Leatha Shine Attending Physician Dr. Rowena Marie DO Attending Physician Dr. Eliezer Chapin DO Attending Physician Dr. Rowena Marie DO Referring Provider Eliezer Chapin Referring Unavailable Eliezer Chapin Primary Care Unavailable Rowena Marie Attending UnavailEliezer Ardon Referring Unavailable Leatha Crawford Attending Unavailable Eliezer Chapin Primary Care Unavailable Eliezer Chapin Referring Unavailable Rowena Marie Attending UnavailEliezer Ardon Primary Care Unavailable Rowena Marie Attending UnavailEliezer Ardon Primary Care Unavailable Eliezer Chapin Attending Unavailable Eliezer Chapin Primary Care Unavailable Rowena Marie Referring UnavailEliezer Ardon Primary Care Unavailable Rowena Marie Attending Unavaildino e Rowena Marie Attending Rowena Galvan Referring Eliezer Villa Primary Care Unavailable Leatha Crawford Attending Unavailable Eliezer Chapin Primary Care Unavailable Leatha Crawford Attending Unavailable Leatha Crawford Referring Unavailable Eliezer Chapin Primary Care Unavailable Medications Current Medications Medication Drug Class(es) Dates Sig (Normalized) Sig (Original) [id number] 200 actuat albuterol 0.09 mg/actuat metered dose inhaler (10 sources) beta2-Adrenergic Agonist Start: 07-08-2019 Albuterol Sulfate 1 INHALER inhaler Active 1 - 2 NMA INHALATION EVERY 4 HOURS NEEDED as needed for Asthma July 08, 2019 12:00am Complies with drug therapy Start: 07-08-2019 take 1 puff(s) by in halation every four hours as needed Albuterol Sulfate Active 1 - 2 PUFF inhalation EVERY 4 HOURS NEEDED July 07, 2019 11:00pm Norgestimate-Ethinyl Estradiol (20 sources) Progestin, Estrogen Start: 04-07-2025 take 0.25 tablet by mouth once daily Norgestimate-Ethinyl Estradiol (Sally) 0.25-0.035 mg tablet Active 1 {tbl} PO DAILY 84 4 April 07, 2025 10:16am Complies with drug therapy Start: 04-07-2025 take 0.25 tablet by mouth once daily Start: 04-07-2025 take 0.25 tablet by mouth [...] 2024 10:26am loratadine 10 mg oral tablet (10 sources) Start: 07-01-2020 take 1 tablet by mouth once daily Loratadine 10 MG tablet Active 10 mg PO DAILY July 01, 2020 12:00am allergies Complies with drug therapy montelukast 10 mg oral tablet (8 sources) Leukotriene Receptor Antagonist Start: 03-18-2024 take 1 tablet by mouth once daily Montelukast (Singulair) 10 mg tablet Active 10 mg PO DAILY March 18, 2024 12:00am Complies with drug therapy Pnv Cmb#95-Ferrous Fumarate-Fa (2 sources) Start: 07-01-2020 [...] / nitrofurantoin, monohydrate 75 mg oral capsule (7 sources) Nitrofuran Antibacterial Start: 04-09-2025 End: 04-14-2025 take 1 capsule by mouth every twelve hours at mealtime Nitrofurantoin Monohyd/M-Cryst (Macrobid) 100 mg capsule Discontinued 100 mg PO Q12H 10 5 0 April 09, 2025 12:00am April 13, 2025 12:00am April 14, 2025 12:08am must administer with a meal/food Pnv Cmb#95-Ferrous Fumarate-Fa 1 EACH tablet (5 sources) Start: 07-01-2020 End: 04-07-2025 Pnv Cmb#95-Ferrous Fumarate-Fa 1 EACH tablet Discontinued 1 {tbl} PO DAILY July 01, 2020 12:00am April 07, 2025 9:59am Pnv No.95-Ferrous Fumarate-Fa 1 EACH tablet (3 sources) Start: 07-01-2020 End: 04-07-2025 take 1 tablet by mouth once daily Pnv No.95-Ferrous Fumarate-Fa 1 EACH tablet Discontinued 1 {tbl} PO DAILY July 01, 2020 12:00am April 07, 2025 9:59am Problems Problem Classification Problem Date Documented Da te Episodic/Chronic Genitourinary symptoms and ill-defined conditions (20 sources) Urinary incontinence; Translations: [Urge incontinence of urine] Chronic Genitourinary symptoms and ill-defined conditions (20 sources) Abnormal urine odor; Translations: [Unspecified abnormal findings in urine] Onset: 04-07-2025 04-07-2025 Episodic Other female genital disorders (14 sources) Enlarged uterus; Translations: [Hypertrophy of uterus] 04-07-2025 Episodic Other female genital disorders (11 sources) Polyp of cervix; Translations: [Polyp of cervix uteri] 04-28-2025 Episodic Other female genital disorders (1 source) Polyp of cervix uteri; Translations: [Polyp of cervix uteri] Onset: 06-15-2025 Episodic Other female genital disorders (1 source) Hypertrophy of uterus; Translations: [Hypertrophy of uterus] Onset: 06-07-2025 Episodic Other screening for suspected conditions (not mental disorders or infectious disease) (4 sources) Patient encounter status; Translations: [Encounter for other screening for genetic and chromosomal anomalies] Onset: 04-17-2025 05-11-2025 Episodic Comment on above: Negative Empower scr eening, 18.2% lifetime risk Ovarian cyst (11 sources) Cyst of ovary; Translations: [Unspecified ovarian cyst, unspecified side] Onset: 04-28-2025 04-28-2025 Episodic Residual codes; unclassified (1 source) Family history of malignant neoplasm of breast; Translations: [Family history of malignant neoplasm of breast] Onset: 05-05-2025 Episodic Spontaneous (10 sources) Complete inevitable miscarriage without complication; Translations: [Complete or unspecified spontaneous without complication] 06-27-2019 Episodic Unclassified (12 sources) R32 - Unspecified urinary incontinence Results Test Name Value Interpretation Reference Range Facility CBC W/Diff, Automatedon 10-0 Absolute Lymph 1.50 X10 3/uL Normal 0.83-4.51 [facility] Comment on above: Performed By: #### L 100.0100, BTSPAT ####[facility] [address] [place], [address] Absolute Neut 2.3 X10 3/uL Normal 2.0-7.7 [facility] Comment on above: Performed By: #### L 100.0100, BTSPAT ####[facility] [address] [place], [address] Basophils/100 WBC (Bld) 0.9 % Normal 0-1 [facility] Comment on above: Performed By: #### L 100.0100, BTSPAT ####[facility] [address] [place], [address] Eosinophils/100 WBC (Bld) 6.2 % High 0-5 [facility] Comment on above: Performed By: #### L 100.0100, BTSPAT ####[facility] [address] [place], [address] Erythrocyte distribution width (RBC) [Ratio] 12.9 % Normal 11.6-14.6 [facility] Comment on above: Performed By: #### L 100.0100, BTSPAT ####[facility] [address] [place], [address] Hematocrit (Bld) [Volume fraction] 38.9 % Normal 37-47 [facility] Comment on above: Performed By: #### L 100.0100, BTSPAT ####[facility] [address] [place], [address] Hemoglobin (Bld) [Mass/Vol] 12.9 g/dL Normal 12.0-15.0 [facility] Comment on above: Performed By: #### L 100.0100, BTSPAT ####[facility] [address] [place], [address] IG% 0.200 Normal 0.0-0.9 [facility] Comment on above: Result Comment: IG% - Immature Granulocytes (promyelocytes, myelocytes and metamyelocytes) > 1% indicates that a LEFT SHIFT is Present. Performed By: #### L 100.0100, BTSPAT ####[facility] [address] [place], [address] Lymphocytes/100 WBC (Bld) 33.3 % Normal 19-41 [facility] Comment on above: Performed By: #### L 100.0100, BTSPAT ####[facility] [address] [place], [address] MCH (RBC) [Entitic mass] 29.5 pg Normal 27.0-32.0 [facility] Comment on above: Performed By: #### L 100.0100, BTSPAT ####[facility] [address] [place], [address] MCHC (RBC) [Mass/Vol] 33.2 g/dL Normal 32-36 [facility] Comment on above: Performed By: #### L 100.0100, BTSPAT ####[facility] [address] [place], [address] MCV (RBC) [Entitic vol] 89.0 fL Normal 81-99 [facility] Comment on above: Performed By: #### L 100.0100, BTSPAT ####[facility] [address] [place], [address] Monocytes/100 WBC (Bld) 8.7 % Normal 0-10 [facility] Comment on above: Performed By: #### L 100.0100, BTSPAT ####[facility] [address] [place], [address] Neutrophils/100 WBC (Bld) 50.7 % Normal 47-70 [facility] Comment on above: Performed By: #### L 100.0100, BTSPAT ####[facility] [address] [place], [address] Nucleated RBC (Bld) [#/Vol] 0 10*3/uL Normal 0-5 [facility] Comment on above: Performed By: #### L 100.0100, BTSPAT ####[facility] [address] [place], [address] Platelet mean volume (Bld) [Entitic vol] 11.6 fL Normal 6.2-12.0 [facility] Comment on above: Performed By: #### L 100.0100, BTSPAT ####[facility] [address] [place], [address] Platelets (Bld) [#/Vol] 165 10*3/uL Normal 150-450 [facility] Comment on above: Performed By: #### L 100.0100, BTSPAT ####[facility] [address] [place], [address] RBC (Bld) [#/Vol] 4.37 10*6/uL Normal 4.2-5.4 [facility] Comment on above: Performed By: #### L 100.0100, BTSPAT ####[facility] [address] [place], [address] RDW SD 42.1 fl Normal 35.1-43.9 [facility] Comment on above: Performed By: #### L 100.0100, BTSPAT ####[facility] [address] [place], [address] WBC (Bld) [#/Vol] 4.5 10*3/uL Normal 4.4-11.0 [facility] Comment on above: Performed By: #### L 100.0100, BTSPAT ####[facility] [address] [place], [address] Apron Worker Office Visit Reporton 06-15-2025 Apron Worker Office Visit Report [facility]'s [address], [address] [place] [address] OFFICE VISIT Date of Service: 06/15/25 MR#: [id number] Acct: [id number] Name: AMELIA ALVARADO Rep #: [id number] : 1990 Provider: Dr. Rowena Peña DO Age/Sex: 35/F Location: [facility] Status: Signed Intake Vital Signs 05/14/25 15:21 06/15/25 13:06 06/15/25 13:07 Height 5 ft 5 in 5 ft 5 in 5 ft 5 in Weight: 152 lb 9 oz BMI 25.4 BP 108/73 Intake Visit Reasons: D C polypectomy Dairy [employer] Supervisor Required: No Is patient in pain?: No Allergies No Known Allergies Allergy (Verified 06/15/25 13:05) Medications ???Medication ???Instructions ???Recorded ???Confirmed ???Type albuterol sulfate 90 mcg/actuation 1 - 2 puff inhalation Q4H PRN OR N 07/08/19 06/15/25 History aerosol inhaler Asthma loratadine 10 mg tablet 10 mg PO DAILY allergies 07/01/20 06/15/25 History montelukast 10 mg tablet 10 mg PO DAILY 03/18/24 06/15/25 H istory (Singulair) norgestimate 0.25 mg-ethinyl 1 tab PO DAILY #84 tabs 04/07/25 1 Rx estradiol 0.035 mg tablet (Sally) Post menopausal: No Patient : No : No PFSH Surgical History H/O dilation and curettage Family History Grandmother Breast cancer, Onset Age: 37 Cervical cancer Unknown Ovarian cancer great grandmother Social History household members: family number of children: 2 current occupational status: employed current occupation: [employer] pets and animals: Yes sexually active: Yes Smoking Status: Never smoker alcohol intake: never substance use type: does not use caffeine: No eating out: rarely or never during the past year weight has: remained stable margaret/holiness: Congregational seatbelt use: always do you feel safe at home: Yes additional social history: - Aaron. Poe HPI D C polypectomy Details: Amelia Alvarado is a 35-year-old female presenting for a preoperative evaluation for hysteroscopy D C due to a cervical polyp on ultrasound only. She was seen by Leatha Crawford NP and Leatha did not appreciate a visible polyp. The urinary incontinence began after childbirth and is characterized by an inability to hold urine when the urge arises, leading to leakage if not addressed immediately. This issue has persisted for five years, although it does not occur daily. The patient reports attempts to control the leakage by squeezing the pelvic muscles, but these efforts are often ineffective. The cervical polyp was identified during a pelvic ultrasound ordered after a recent examination. Polyps can be benign but may also cause abnormal bleeding or pain, necessitating removal for further evaluation. The patient also has a history of ovarian cysts, which are monitored through ultrasound. The current cyst appears benign, resembling an ovulatory cyst, and will be reassessed in a follow-up ultrasound. Family history is significant for breast, cervical, and ovarian cancer, with the patient's grandmother and great-grandmother affected. Genetic testing is considered to assess the patient's risk for hereditary cancer syndromes. The patient is currently experiencing a yeast infection, for which she is undergoing treatment with Monistat. She reports improvement in symptoms since starting the treatment. History 3 Elective abortions Hx Para 2 Spontaneous abortions 1 Hx # Term Pregnancies 2 Ectopic pregnancies Hx # Pregnancies Multiple births # of living children 2 Past Pregnancies Del. Date Name GA/Weeks Outcome Route Bth Weight Infant Gen Labor Lgth Anesthesia Del Locatn Provider FOB 06/07/17 Sg live - full term [facility] 07/01/20 [facility] ROS Const ROS Unobtainable: All systems reviewed are unremarkable except as noted in H Resp Resp: Reports system reviewed and no additional complaints, except as documented; Denies cough GI GI: Reports as per HPI Psych Psych: Reports system reviewed and no additional complaints, except as documented Exam Const General: cooperative, healthy appearing, comfortable and no acute distress Resp Effort Inspection: normal respiratory effort Skin General: no rashes or lesions noted Psych Appearance: grossly normal Speech and Movement: speech and movement normal Coding Level of Care Code Off vis,est,level 4 Diagnoses Cervical polyp N84.1 Assessment and Plan Assessment and Plan (1) Cervical polyp: Status: Acute Plan: After discussing the patient's diagnosis and treatment plan options, patient wishes to proceed with surg (more content not included)... Normal [facility] Type AND Screen - PAT ONLYon 06-15-2025 Ab SCREEN GEL Negative Normal [facility] Comment on above: Order Comment: [id number] polypectomy Performed By: #### L 100.0100, BTSPAT ####[facility] [address] [facility] [place], [place], [id number] Pelvic w/ Transvaginalon Pelvic w/ Transvaginal [facility] Imaging Services [address], [place] [id number] Pelvic w/ Transvaginal MR#: [id number] Acct: [id number] Name: AMELIA ALVARADO Rep #: [id number] : 1990 F 35 From: Grayson ceron MD PCP: Dr. Eliezer Chapin, Status: REG CLI Study: Pelvic w/ Transvaginal Date of Exam: 05/21/25 Exam# [id number] Ordering Dr: Rowena Marie DO PROCEDURE: PELVIC W/ TRANSVAGINAL REASON FOR EXAM: OVARIAN CYSTS TECHNIQUE: Procedure Code: [id number] Modality: US Procedure: PELVIC W/ TRANSVAGINAL COMPARISON: Prior study dated April 09, 2025. FINDINGS: Measurements: Uterus: 8.9 cm x 6 cm x 4.2 cm with a volume of 117.3 mL Endometrial Thickness: 2 mm Right Ovary: 3.1 cm x 2.1 cm x 1.8 cm with a volume of 6.2 mL. Left Ovary: 3.8 cm x 1.8 cm x 1.4 cm with a volume of 4.9 mL. TRANSABDOMINAL: Uterus: Normal size, myometrial echotexture, and contour. There is an 8 mm x 4 mm x 6 mm echogenic nodule with vascularity in the cervix suggestive of a polyp. This is unchanged. Endometrium: Small amount of fluid is seen within the endometrium. The patient is currently menstruating. Right ovary: Small follicles. The previously seen ovarian cyst has resolved. Left ovary: Normal size and echotexture. Other: No large pelvic mass identified. Transvaginal sonography was performed to better visualize the endometrium. TRANSVAGINAL: Uterus: Retroverted. Findings suggestive of an 8 mm x 4 mm x 6 mm cervical polyp. Endometrium: Normal echotexture. Right ovary: Small follicles. Left ovary: Normal size and echotexture. Other adnexal findings: None. Cul-de-sac: No free intraperitoneal fluid identified. Tenderness: No tenderness US/Pelvic w/ Transvaginal IMPRESSION: Stable findings suggestive of a small polyp in the cervix. Resolution of the previously seen right ovarian cyst. Reading Location: [id number] CC: Dr. Rowena Marie DO; Dr. Eliezer Chapin DO Regulatory Affairs Consultant: Signed Normal [facility] Calculated very low density lipoprotein (VLDL) cholesterol measurementOrdered By: Eliezer Chapin on 05-06-2025 Calculated very low density lipoprotein (VLDL) cholesterol measurement 19 mg/dL 5-40 [facility] LDL calc ser/plasOrdered By: Eliezer Chapin on 05-06-2025 Cholesterol in LDL [Mass/Vol] 78 mg/dL Normal [facility] Comment on above: Svajydrmzm=554-184 m g/dL & Higher Myuw=607 mg/dL or greaterFriedwald Equation for LDL-C Result Comment: Bord cyufkc=572-195 mg/dL Higher Zdto=889 mg/dL or greater Friedwald Equation for LDL-C Performed By: #### L 500.4100, L501.0100 #### [facility] [address] [place], [address] Lipid Profileon 05-06-2025 CHOL:HDL 3.00 Normal [facility] Comment on above: Performed By: #### L 500.4100, L501.0100 #### [facility] [address] [place], [address] Cholesterol in VLDL [Mass/Vol] 19 mg/dL Normal 5-40 [facility] Comment on above: Performed By: #### L 500.4100, L501.0100 #### [facility] [address] [place], [address] Screening total cholesterol/ high density lipoprotein (HDL) cholesterol ratioOrdered By: Eliezer Chapin on 05-06-2025 Cholesterol.total/Ceci sterol in HDL [Mass ratio] 3.00 {ratio} [facility] Serum glucose measurement (m ass/volume)Ordered By: Eliezer Chapin on 05-06-2025 Glucose [Mass/Vol] 86 mg/dL Normal 70-99 [facility] Comment on above: Performed By: #### L 500.4100, L501.0100 ####[facility] [address] [place], [address] Serum or plasma cholesterol in HDL measurement (mass/volume)Ordered By: Eliezer Chapin on 05-06-2025 Cholesterol in HDL [Mass/Vol] 49 mg/dL Normal [facility] Comment on above: National Cholesterol Education Program (NCEP) guidelines:<40 mg/dL: Low HDL-cholesterol (major risk factor for CHD)>= 60 mg/dL: High HDL-cholesterol (negative risk factor for CHD)HDL-cholesterol is affected by a number of factors, e.g. smoking, exercise, hormones, sex and age. Result Comment: Marleny onal Cholesterol Education Program (NCEP) guidelines: <40 mg/dL: Low HDL-cholesterol (major risk factor for CHD) >= 60 mg/dL: High HDL-cholesterol (negative risk factor for CHD) HDL-cholesterol is affected by a number of factors, e.g. smoking, exercise, hormones, sex and age. Performed By: #### L 500.4100, L501.0100 #### [facility] [address] [place], [address] Serum or plasma cholesterol measurement (mass/volume)Ordered By: Eliezer Chapin on 05-06-2025 Cholesterol [Mass/Vol] 146 mg/dL Normal <=200 [facility] Comment on above: Cholesterol level, D esirable <200 mg/dLBorderline high cholesterol 200-239 mg/dLHigh cholesterol >=240 mg/dLRecommendations of the NCEP Adult Treatment Panel for the following risk-cutoff thresholds for the [place] population. Result Comment: Chol esterol level, Desirable <200 mg/dL Borderline high cholesterol 200-239 mg/dL High cholesterol >=240 mg/dL Recommendations of the NCEP Adult Treatment Panel for the following risk-cutoff thresholds for the [place] population. Performed By: #### L 500.4100, L501.0100 #### [facility] [address] [place], [address] Triglycerides measurementOrd ered By: Eliezer TillmanTavares on 05-06-2025 Triglyceride [Mass/Vol] 94 mg/dL Normal [facility] Comment on above: The drugs N-Acetylcy steine and Metamizole may falsely depress this assay. Normal range: <150 mg/dLBorderline High: 150-199 mg/dLHigh: 200-499 mg/dLVery High: >500 mg/dL Result Comment: The drugs N-Acetylcysteine and Metamizole may falsely depress this assay. Normal range: <150 mg/dL Borderline High: 150-199 mg/dL High: 200-499 mg/dL Very High: >500 mg/dL Performed By: #### L 500.4100, L501.0100 #### [facility] [address] [place], [address] NATERAon 04-28-2025 NATURA SEE SCANNED REPORT Normal [facility] Comment on above: Performed By: #### L 900.0098 #### [facility] [address] [place], [address] Apron Worker Office Visit Reporton 04-28-2025 Apron Worker Office Visit Report [facility]'[address], [address] [place] [address] OFFICE VISIT Date of Service: 04/28/25 MR#: [id number] Acct: [id number] Name: AMELIA ALVARADO Rep #: [id number] : 1990 Provider: Dr. Rowena Peña DO Age/Sex: 35/F Location: [facility] Status: Signed Intake Vital Signs 04/07/25 09:52 04/12/25 12:40 04/28/25 08:20 04/28/25 08:22 Height 5 ft 5 in 5 ft 5 in 5 ft 5 in 5 ft 5 in Weight: 158 lb 154 lb BMI 26.2 25.6 BP 123/76 H 113/79 Intake Visit Reasons: surgical consult per CB Dairy [employer] Supervisor Required: No Is patient in pain?: No Allergies No Known Allergies Allergy (Verified 04/28/25 08:20) Medications ???Medication ???Instructions ???Recorded ???Confirmed ???Type albuterol sulfate 90 mcg/actuation 1 - 2 puff inhalation Q4H PRN OR N 07/08/19 04/28/25 History aerosol inhaler Asthma loratadine 10 mg tablet 10 mg PO DAILY allergies 07/01/20 04/28/25 History montelukast 10 mg tablet 10 mg PO DAILY 03/18/24 04/28/25 H istory (Singulair) norgestimate 0.25 mg-ethinyl 1 tab PO DAILY #84 tabs 04/07/25 0 04/28/25 Rx estradiol 0.035 mg tablet (Sally) Post menopausal: No Patient : No : No PFSH Surgical History H/O dilation and curettage Family History Grandmother Breast cancer, Onset Age: 37 Social History household members: family number of children: 2 current occupational status: employed current occupation: [employer] pets and animals: Yes sexually active: Yes Smoking Status: Never smoker alcohol intake: never substance use type: does not use caffeine: No eating out: rarely or never during the past year weight has: remained stable margaret/holiness: Congregational seatbelt use: always do you feel safe at home: Yes additional social history: - Aaron. Poe [facility] surgical consult per CB Details: The [...] has persisted for five years, although it does not occur daily. The patient reports attempts to control the leakage by squeezing the pelvic muscles, but these efforts are often ineffective. The cervical polyp was identified during a pelvic ultrasound ordered after a recent examination. Polyps can be benign but may also cause abnormal bleeding or pain, necessitating removal for further evaluation. The patient also has a history of ovarian cysts, which are monitored through ultrasound. The current cyst appears benign, resembling an ovulatory cyst, and will be reassessed in a follow-up ultrasound. Family history is significant for breast, cervical, and ovarian cancer, with the patient's grandmother and great-grandmother affected. Genetic testing is [...] the encounter. Provider reviewed content of the generated note prior to signature. History 3 Elective abortions Hx Para 2 Spontaneous abortions 1 Hx # Term Pregnancies 2 Ectopic pregnancies Hx # Pregnancies Multiple births # of living children 2 Past Pregnancies Del. Date Name GA/Weeks Outcome Route Bth Weight Gen Labor Lgth Anesthesia Del Locatn Provider FOB 06/07/17 Sg live - full term [facility] 07/01/20 Tristan live - full term [facility] ROS Const ROS Unobtainable: All systems reviewed are unremarkable except as noted in H Details: - Genitourinary: Reports urinary incontinence post-childbirth, denies daily occurrence. - Reproductive: Reports cervical polyp identified on ultrasound, denies abnormal bleeding. - Dermatological: Reports current yeast infection with pruritus, improving with treatment. Resp Resp: Reports system reviewed and no additional complaints, except as documented; Denies cough GI GI: Reports as per HPI Psych Psych: Reports system reviewed and no additional complaints, except as documented Exam (more content not included)... Normal [facility] Breast imaging reportOrdered By: Bela Moreno on 04-09-2025 Study report [facility] Imaging Services [address] [place] [address] SCRN MAMM (CAD)W/KHARI BILAT MR#: [id number] Acct: [id number] Name: AMELIA ALVARADO Rep #: [id number] : 1990 F 35 From: Flaco Oshea MD PCP: Dr. Eliezer Chapin DO Status: REG CLI Study:SCRN MAMM (CAD)W/KHARI BILAT Date of Exa m: 04/09/25 Exam# [id number] Ordering Dr: Leatha Crawford [employer]ING [employer] SUPERVISOR-C EXAM: SCRN MAMM (CAD)W/KHARI BILAT DATE: 04/09/2025 [...] be mailed to the patient. Reading Location: [id number] CC: ZAHRA Crawford; Dr. Eliezer Chapin, ~ Regulatory Affairs Consultant: Signed [facility] PAP IG HPV APTIMA 16/18,45on 04-09-2025 ADEQ Comment Normal . [facility] Comment on above: Order Comment: Speci men Comment: [id number] Specimen Comment: No. of containers..01 ThinPrep Vial Result Comment: Sati sfactory for evaluation. Endocervical and/or squamous metaplastic cells (endocervical component) are present. Performed By: #### L 7400.0280 #### [facility] Laboratory [address] [place], [place], [address] COMM . Normal . [facility] Comment on above: Order Comment: Speci men Comment: [id number] Specimen Comment: No. of containers..01 ThinPrep Vial Performed By: #### L 7400.0280 #### [facility] Laboratory [address] [place], [place], [id number] COMMENT Comment Normal . [facility] Comment on above: Order Comment: Speci men Comment: [id number] Specimen Comment: No. of containers..01 ThinPrep Vial Result Comment: This liquid based ThinPrep(R) pap test was screened with the use of an image guided system. Performed By: #### L 7400.0280 #### [facility] Laboratory [address] [place], [place], [id number] DIAG Comment Normal . [facility] Comment on above: Order Comment: Speci men Comment: [id number] Specimen Comment: No. of containers..01 ThinPrep Vial Result Comment: NEGA TIVE FOR INTRAEPITHELIAL LESION OR MALIGNANCY. Performed By: #### L 7400.0280 #### [facility] [address] [place], [address] HPV APTIMA, HR Negative Normal Negative [facility] Comment on above: Order Comment: Speci men Comment: [id number] Specimen Comment: No. of containers..01 ThinPrep Vial Result Comment: This nucleic acid amplification test detects fourteen high- risk HPV types (16,18,31,33,35,39,45,51,52,56,58,59,66,68) without differentiation. Performed By: #### L 7400.0280 #### [facility] Laboratory [address] [place], [place], [address] HPV Jamilah Rfx Comment Normal . [facility] Comment on above: Order Comment: Speci men Comment: [id number] Specimen Comment: No. of containers..01 ThinPrep Vial Result Comment: Crit jaquelin not met, HPV Genotype not performed. Performed at: WB - [facility] [id number] Materials Research Engineer: Milagro Purvis MD, Phone: [phone] Performed at: =G - [facility] [address] [id number] Materials Research Engineer: Milagro Purvis MD, Phone: [phone] Performed By: #### L 7400.0280 #### [facility] Laboratory [address] [place], [place], [id number] PAPSMR Comment Normal . [facility] Comment on above: Order Comment: Speci men Comment: [id number] Specimen Comment: No. of containers..01 ThinPrep Vial Result Comment: The Pap smear is a screening test designed to aid in the detection of premalignant and malignant conditions of the uterine cervix. It is not a diagnostic procedure and should not be used as the sole means of detecting cervical cancer. Both false-positive and false-negative reports do occur. Performed By: #### L 7400.0280 #### [facility] [address] [place], [place], [id number] PERFORM Comment Normal . [facility] Comment on above: Order Comment: Speci men Comment: [id number] Specimen Comment: No. of containers..01 ThinPrep Vial Result Comment: Yanet Wu Fashion Consultant (ASCP) Performed By: #### L 7400.0280 #### [facility] Laboratory [address] [place], [address] Pelvic w/ Transvaginalon Pelvic w/ Transvaginal [facility] Imaging Services [address] [place] [address] Pelvic w/ Transvaginal MR#: [id number] Acct: [id number] Name: AMELIA ALVARADO Rep #: [id number] : 1990 F 35 From: Grayson ceron MD PCP: Dr. 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 Follow-up recommended. Reading Location: VIANNEY CC: ZAHRA Crawford; Dr. Eliezer Chapin DO Regulatory Affairs Consultant: Signed Normal [facility] SCRN MAMM (CAD)W/KHARI BILATo n 04-09-2025 SCRN MAMM (CAD)W/KHARI BILAT [facility] Imaging Services [address] [place], [place] [address] SCRN MAMM (CAD)W/KHARI BILAT MR#: [id number] Acct: [id number] Name: AMELIA ALVARADO Rep #: [id number] : 1990 F 35 From: Bela Quintero i, MD PCP: Dr. Eliezer Chapin DO Status: REG CLI Study: SCRN MAMM (CAD)W/KHARI BILAT Date of Exam: 10/03 Exam# [id number] Ordering Dr: Leatha Crawford EXAM: SCRN MAMM (CAD)W/KHARI BILAT DATE: 04/09/2025 [...] be mailed to the patient. Reading Location: ROBINI CC: ZAHRA Crawford; Dr. Eliezer Chapin DO Regulatory Affairs Consultant: Signed Normal [facility] Urine Cultureon 04-09-2025 URC Presumptive E. coli Totz Count >100,000 Presumptive E. coli: REACTION Ampicillin [...] TMP SMX Islt SHAHID <=20 S Normal [facility] Comment on above: Performed By: #### M 100.2200 #### [facility] Laboratory [address] [place], [address] Cervical or vaginal specimen microscopic examination by liquid based cytology (reportOrdered By: Leatha Crawford on 04-07-2025 Cytology report Cyto stain.thin prep Doc (Cvx/Vag) Comment . [facility] Comment on above: Criteria not met, HP V Genotype not performed.Performed at: - [address] [id number] Director: Milagro Purvis MD, Phone: [phone] at: =[facility] [id number] Director: Milagro Purvis MD, Phone: [phone] Cervical or vagninal specime n microscopic examination by cytology stain (reported asOrdered By: Leatha Crawford on 04-07-2025 Cytology report Cyto stain Doc (Cvx/Vag) Comment . [facility] Comment on above: The Pap [...] DNA Probe+sig amp Ql (Cvx) Negative Negative [facility] Comment on above: This nucleic acid am plification test detects fourteen high-risk HPV types (16,18,31,33,35,39,45,51,52,56,58,59,66,68)without differentiation. Laboratory - Chemistry and C hemistry - challengeOrdered By: Leatha Crawford on 04-07-2025 Bilirubin Ql (U) Negative [facility] Glucose Ql (U) Negative [facility] Ketones Ql (U) Negative [facility] pH (U) 6.5 [pH] [facility] Specific gravity (U) [Rel density] 1.020 [facility] Urobilinogen (U) [Mass/Vol] Negative [facility] Laboratory - CytologyOrdered By: Leatha Crawford on 04-07-2025 Fashion Consultant Cyto stain Nom (Cvx/Vag) [ID] Comment . [facility] Comment on above: Amina Wu, Fashion Consultant (ASCP) Laboratory - Hematology and Cell countsOrdered By: Leatha Crawford on 04-07-2025 Hemoglobin Ql (U) Negative [facility] Laboratory - Miscellaneous t estsOrdered By: Leatha Crawford on 04-07-2025 Service comment (Unsp spec) [Interp] . . [facility] Laboratory - Specimen inform ationOrdered By: Leatha Crawford on 04-07-2025 Clarity (U) Cloudy [facility] Color (U) [place] [facility] Laboratory - UrinalysisOrder ed By: Leatha Crawford on 04-07-2025 Nitrite Ql (U) Negative [facility] Protein Ql (U) Negative [facility] No Panel InformationOrdered By: Leatha Crawford on 04-07-2025 Pap Smear Specimen Adequacy Comment . [facility] Comment on above: Satisfactory for dinora luation. Endocervical and/or squamous metaplasticcells (endocervical component) are present. Urine Leukocytes Positive [facility] Urine Non-Hemolyzed Blood [facility] Apron Worker Office Visit Reporton 04-07-2025 Apron Worker Office Visit Report 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 Is patient in pain?: No Allergies No Known Allergies Allergy (Verified 04/07/25 09:59) Medications ???Medication ???Instructions ???Recorded ???Confirmed ???Type albuterol sulfate 90 mcg/actuation 1 - 2 puff inhalation Q4H PRN OR N 07/08/19 04/07/25 History aerosol inhaler Asthma [...] No : No [facility] H/O dilation and curettage Family History (Updated 04/07/25 @ 10:19 by Cece Bender) Grandmother Breast cancer, Onset Age: 37 Social History household members: family number of children: 2 current occupational status: employed current occupation: [employer] pets and animals: Yes sexually active: Yes Smoking Status: Never smoker alcohol intake: never substance use type: does not use caffeine: No eating out: rarely or never during the past year weight has: remained stable margaret/holiness: Congregational seatbelt use: always do you feel safe at home: Yes additional social history: - Aaron. Poe History 3 Elective abortions Hx Para 2 Spontaneous abortions 1 Hx # Term Pregnancies 2 Ectopic pregnancies Hx # Pregnancies Multiple births # of living children 2 Past Pregnancies Del. Date Name GA/Weeks Outcome Route Bth Weight Infant Gen Labor Lgth Anesthesia Del Uvaldoatn Provider FOB 06/07/17 Sg live - full term [facility] 07/01/20 Tristan live - full term [facility] HPI Encounter for routine gynecological examination [...] respiratory effort (more content not included)... Normal [facility] Urine cultureOrdered By: Marcio Crawford on 04-07-2025 Bacteria identified Cx Nom (U) Presumptive E. coli Abnormal [facility] Culture, urineOrdered By: Tao Chapin on 10-17-2023 Bacteria identified Cx Nom (U) Presumptive E. coli [facility] Basophil percentageOrdered B y: Dr. Chapin on 12-03-2022 Cholesterol [Mass/Vol] 146 mg/dL <200 [facility] Comment on above: <200 mg/dL Desirable 200-240 mg/dL Borderline >240 mg/dL High Risk Glucose [Mass/Vol] 114 mg/dL 74-106 [facility] Comment on above: Fasting Glucose resu lt from 100 to 125 mg/dL suggests IMPAIRED HOMEOSTASIS per A.D.A. criteria. Triglyceride [Mass/Vol] 79 mg/dL <199 [facility] Comment on above: The drugs N-Acetylcy steine and Metamizole may falsely depress this assay.Serum Triglycerides Reference Interval Normal <150 mg/dL Borderline high 150 - 199 mg/dL High 200 - 499 mg/dL Very High > or = 500 mg/dL Serum or plasma cholesterol in HDL measurement (mass/volume)Ordered By: Dr. Chapin on 12-03-2022 Cholesterol in HDL [Mass/Vol] 43 mg/dL >40 [facility] Comment on above: The drugs N-Acetylcy steine and Metamizole may falsely depress this assay. Reference Range HDL <40 mg/dL Low HDL Cholesterol HDL >or= 60 mg/dL High HDL Cholesterol Serum or plasma cholesterol in VLDL measurement (mass/volume)Ordered By: Dr. Chapin on 12-03-2022 Cholesterol in VLDL [Mass/Vol] 16 mg/dL 5-40 [facility] Serum or plasma low density lipoprotein (LDL) cholesterol measurement (mass/volume)Ordered By: Dr. Chapin on 12-03-2022 Cholesterol in LDL [Mass/Vol] 87 mg/dL 0-130 [facility] Vital Signs Date Time Vital Sign Value Performing Clinician Javier laughlin 06-15-2025 13:07-0400 Body height 165.[address] Eliezer Chapin DO Work Phone: [facility] 06-15-2025 13:06-0400 Body mass index (BMI) [Ratio] 25.4 kg/m2 Dr. Eliezer Chapin DO Work Phone: [facility] 06-15-2025 13:06-0400 Body weight 69.[address] Eliezer Chapin DO Work Phone: [facility] 06-15-2025 13:06-0400 Diastolic blood pressure 73 mm[Hg] Dr. Eliezer Chapin DO Work Phone: [facility] 06-15-2025 13:06-0400 Systolic blood pressure 108 mm[Hg] Dr. Eliezer Chapin DO Work Phone: [facility] 04-28-2025 08:22-0400 Body height 165.[address] Eliezer Chapin DO Work Phone: [facility] 04-28-2025 08:20-0400 Body mass index (BMI) [Ratio] 25.6 kg/m2 Dr. Eliezer Chapin DO Work Phone: [facility] 04-28-2025 08:20-0400 Body weight 69.[address] Eliezer Chapin DO Work Phone: [facility] 04-28-2025 08:20-0400 Diastolic blood pressure 79 mm[Hg] Dr. Eliezer Chapin DO Work Phone: [facility] 04-28-2025 08:20-0400 Systolic blood pressure 113 mm[Hg] Dr. Eliezer Chapin DO Work Phone: [facility] 04-07-2025 09:52-0400 Body height 165.[address] Eliezer Chapin DO Work Phone: [facility] 04-07-2025 09:52-0400 Body mass index (BMI) [Ratio] 26.2 kg/m2 Dr. Eliezer Chapin DO Work Phone: [facility] 04-07-2025 09:52-0400 Body weight 71.[address] Eliezer Chapin DO Work Phone: [facility] 04-07-2025 09:52-0400 Diastolic blood pressure 76 mm[Hg] Dr. Eliezer Chapin DO Work Phone: [facility] 04-07-2025 09:52-0400 Systolic blood pressure 123 mm[Hg] Dr. Eliezer Chapin DO Work Phone: [facility] Encounters Encounter Date Encounter Type Care Provider Facility Start: 06-18-2025 Encounter for other preprocedural examination [facility] Start: 06-15-2025 Encounter for other preprocedural examination [facility] [place] Start: 06-15-2025 Preproced[address] examin ation done Dr. Eliezer Chapin DO Work Phone: [facility] Start: 06-15-2025 End: 06-15-[address] Rowena Marie DO -[facility] Work Phone: Start: 06-15-2025 End: 06-15-[address] Eliezer Chapin DO Work Phone: -[facility] Start: 05-21-2025 End: 05-21-[address] Eliezer Chapin DO Work Phone: -Ultrasound [facility] Start: 05-21-2025 End: 05-21-[address] Rowena Marie DO -Ultrasound [facility] Work Phone: Start: 05-21-2025 End: 05-21-2025 ambulatory Rowena Marie Facility:[facility] Start: 05-12-2025 Encounter for genera l adult medical examination without abnormal findings Eliezer Chapin [facility] Start: 05-06-2025 End: 05-06-[address] Eliezer Chapin DO Work Phone: -Laboratory Cookie Duarte [facility] Start: 05-06-2025 End: 05-06-[address] Eliezer Chapin DO -Laboratory Cookie Duarte [facility] Start: 05-06-2025 End: 05-06-2025 ambulatory Eliezer Chapin Facility:[facility] Start: 04-28-2025 End: 04-28-[address] Rowena Marie DO -[facility] Work Phone: Start: 04-28-2025 End: 04-28-[address] Eliezer Chapin DO Work Phone: -[facility] Start: 04-28-2025 End: 04-28-2025 ambulatory Rowena Marie Facility:[facility] Start: 04-09-2025 End: 04-09-[address] Eliezer Chapin DO Work Phone: -Ultrasound [facility] Start: 04-09-2025 End: 04-09-2025 Patient encounter procedure Leatha SWEENEY -Ultrasound [facility] Work Phone: Start: 04-09-2025 End: 04-09-2025 ambulatory Leatha Crawford Facility:[facility] Start: 04-07-2025 End: 04-07-2025 Patient encounter procedure Leatha SWEENEY -[facility] Work Phone: Start: 04-07-2025 End: 04-07-2025 Patient encounter status [facility] Start: 04-07-2025 End: 04-07-[address] Eliezer Chapin DO Work Phone: -[facility] Start: 04-07-2025 End: 04-07-2025 ambulatory Leatha Crawford Facility:[facility] Start: 10-17-2023 End: 10-17-2023 ambulatory [facility] Work Phone: Start: 10-17-2023 End: 10-17-2023 Patient encounter procedure [facility]-Laboratory, Specimen Work Phone: Start: 12-03-2022 End: 12-03-2022 ambulatory [facility] Work Phone: Start: 12-03-2022 End: 12-03-2022 Patient encounter procedure [facility]-Laboratory, Cookie Duarte [facility] Procedures Date Procedure Procedure Detail Performing Clinician Start: 05-21-[address] Fitz Chapin DO Work Phone: Start: 04-28-[address] Eliezer coast DO Work Phone: Start: 04-09-[address] Fitz Chapin [...] Treatment Date Care Activity Detail Author Start: 06-25-2025 ambulatory Ambulatory Facility:[facility] Start: 06-15-2025 CBC W Auto Different ial panel - Blood [facility] Start: 06-15-2025 [facility] Start: 04-28-2025 Procedure [facility] Start: 04-07-2025 Bacteria identified in Urine by Culture Urine Culture [facility] Start: 04-07-2025 [facility] MG Breast - bilatera l Screening [facility] Urine culture [facility] Immunizations Immunization Date Immunization Notes Care Provider Fa elifty 07-02-2020 influenza, injectabl e, quadrivalent, preservative free [facility] 07-02-2020 influenza, seasonal, injectable [facility] 06-09-2017 influenza, injectabl e, quadrivalent, preservative free [facility] 06-09-2017 influenza, seasonal, injectable [facility] Payers Date Payer Category Payer Self-pay [id number] 2020 Unknown [id number] Unknown [id number] 2.16.8 [id number] Unknown [id number] 2.16.8 [id number] Unknown [id number] 2.16.8 [id number] Unknown [id number] 2.16.8 [id number] Unknown [id number] 2.16.8 [id number] Unknown [id number] 2.16.8 [id number] Unknown [id number] 2.16.8 [id number] Unknown [id number] 2.16.8 [id number] Unknown [id number] 2.16.8 [id number] Social History Date Type Detail Facility Start: 07-01-2020 End: 07-01-2020 Tobacco smoking status NHIS Unknown if ever smoked [facility] Start: 07-08-2019 Non-smoker [facility] Start: 1990 Sex Assigned At Female [facility] Start: 04-07-2025 End: 05-14-2025 Tobacco smoking status NHIS Never smoked tobacco (finding) [facility] Sex Female [facility] Clinical Notes 04-07-2025 to 06-15-2025 Note Date & Type Note Facility 06-15-2025 Progress note [facility] 05-21-2025 Radiology Diagnostic study note [facility] Imaging Services [address] [place] [address] Pelvic w/ Transvaginal MR#: [id number] Acct: [id number] Name: AMELIA ALVARADO Rep #: [id number] : 1990 F 35 From: Rodolfo Gold MD PCP: Dr. Eliezer Chapin DO Status: REG CLI Study:Pelvic w/ Transvaginal Date of Exam: 05/21/25 Exam# [id number] Ordering Dr: Rowena Velásquez DO PROCEDURE: PELVIC W/ TRANSVAGINAL REASON FOR EXAM: OVARIAN CYSTS TECHNIQUE: Procedure Code: [id number] Modality: US Procedure: PELVIC W/ TRANSVAGINAL COMPARISON: Prior study dated April 09, 2025. FINDINGS: Measurements: Uterus: 8.9 cm x 6 cm x 4.2 cm with a volume of 117.3 mL Endometrial Thickness: 2 mm Right Ovary: 3.1 cm x 2.1 cm x 1.8 cm with a volume of 6.2 mL. Left Ovary: 3.8 cm x 1.8 cm x 1.4 cm with a volume of 4.9 mL. TRANSABDOMINAL: Uterus: Normal size, myometrial echotexture, and contour. There is an 8 mm x 4 mm x 6 mm echogenic nodule with vascularity in the cervix suggestive of a polyp. This is unchanged. Endometrium: Small amount of fluid is seen within the endometrium. The patient is currently menstruating. Right ovary: Small follicles. The previously seen ovarian cyst has resolved. Left ovary: Normal size and echotexture. Other: No large pelvic mass identified. Transvaginal sonography was performed to better visualize the endometrium. TRANSVAGINAL: Uterus: Retroverted. Findings suggestive of an 8 mm x 4 mm x 6 mm cervical polyp. Endometrium: Normal echotexture. Right ovary: Small follicles. Left ovary: Normal size and echotexture. Other adnexal findings: None. Cul-de-sac: No free intraperitoneal fluid identified. Tenderness: No tenderness US/Pelvic w/ Transvaginal IMPRESSION: Stable findings suggestive of a small polyp in the cervix. Resolution of the previously seen right ovarian cyst. Reading Location: [id number] CC: Dr. Rwoena Marie, DO; Dr. Eliezer Chapin, ~ Regulatory Affairs Consultant: Signed [facility] 04-28-2025 Progress note [facility] 04-09-2025 Radiology Diagnostic study note [facility] Imaging Services [address] [place] [address] Pelvic w/ Transvaginal MR#: [id number] Acct: [id number] Name: AMELIA ALVARADO Rep #: [id number] : 1990 F 35 From: Rodolfo Gold MD PCP: Dr. 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 Follow-up recommended. Reading Location: [id number] CC: ZAHRA Crawford; Dr. Eliezer Chapin, DO ~ Regulatory Affairs Consultant: Signed [facility] [facility] Evaluation note Diagnosis Onset Date Resolution Abnormal urine odor acute April 07, 2025 9:46am Enlarged uterus acute March 9:46am Urge incontinence acute April 072024 9:46am Encounter for routine gynecological examination noneactive April 07, 2025 9:46am [facility] Work Phone: 1(590) 911-643807-30-2025 Evaluation note* Diagnosis Onset Date Resolution Status Admit Date Abnormal urine odor acute April 07, 2025 9:46am Enlarged uterus acute March 9:46am Urge incontinence acute April 072024 9:46am Encounter for routine gynecological examination noneactive March 112024 9:46am Cervical polyp acute April 8:17am Ovarian cyst acute April 28, 2025 8:17am Urinary frequency acute April 28, 2025 8:17am [facility] Work Phone: 1(388) 670-135207-30-2025 Evaluation note* Diagnosis Onset Date Resolution Status Admit Date Abnormal urine odor acute April 07, 2025 9:46am Enlarged uterus acute March 9:46am Urge incontinence acute April 072024 9:46am Encounter for routine gynecological examination noneactive March 112024 9:46am Cervical polyp acute April 8:17am Ovarian cyst acute April 28, 2025 8:17am Urinary frequency acute April 28, 2025 8:17am Cervical polyp acute June 12:49pm [facility] [employer] [facility] Work Phone: Evaluation noteNo assessment information available [facility] Work Phone: Evaluation note* Diagnosis Onset Date Resolution Status Admit Date Encounter for routine gynecological examination noneactive March 112024 9:46am [facility] [employer] [facility] Work Phone: Progress note Author Rowena Douglass [facility] Note Date/Time April 28, 2025 8: 58am [facility] [address] [place] [address], [address] [place] [address] OFFICE VISIT Date of Service: 04/28/25 MR#: [id number] Acct: [id number] Name: AMELIA ALVARADO Rep #: [id number] : 1990 Provider: Dr. 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 Is patient in pain?: No Allergies No Known Allergies Allergy (Verified 04/28/25 08:20) Medications ?Medication ?Instructions ?Recorded ?Confirmed ?Type albuterol sulfate 90 mcg/actuation 1 - 2 puff inhalati on Q4H PRN PRN 07/08/19 04/28/25 History aerosol inhaler Asthma loratadine 10 mg tablet 10 mg PO DAILY allergies 04/28/25 History montelukast 10 mg tablet 10 mg PO DAILY 03/18/24 08/ History (Singulair) norgestimate 0.25 mg-ethinyl 1 tab PO DAILY #84 tabs 0 04/07/25 04/28/25 Rx estradiol 0.035 mg tablet (Sally) Post menopausal: No Patient : No : No PFSH Surgical History H/O dilation and curettage Family History Grandmother Breast cancer, Onset Age: 37 Social History household members: family number of children: 2 current occupational status: employed current occupation: [employer] pets and animals: Yes sexually active: Yes Smoking Status: Never smoker alcohol intake: never substance use type: does not use caffeine: No eating out: rarely or never during the past year weight has: remained stable margaret/holiness: Congregational seatbelt use: always do you feel safe at home: Yes additional social history: - Aaron. Poe [facility] surgical consult per CB Details: The [...] FOB 06/07/17 Sg live - full term [facility] 07/01/20 Tristan live - full term [facility] ROS Const ROS Unobtainable: All systems [...] Cosigner Signature: Date (if applicable) CC: ~ [facility] Work Phone: Progress note Author Rowena Douglass [facility] Note Date/Time June 15, 2025 1: 29pm [facility] [address] [place] [id number] OFFICE VISIT Date of Service: 06/15/25 MR#: [id number] Acct: [id number] Name: AMELIA ALVARADO Rep #: [id number] : 1990 Provider: Dr. 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 Is patient in pain?: No Allergies No Known Allergies Allergy (Verified 06/15/25 13:05) Medications ?Medication ?Instructions ?Recorded ?Confirmed ?Type albuterol sulfate 90 mcg/actuation 1 - 2 puff inhalati on Q4H PRN PRN 07/08/19 06/15/25 History aerosol inhaler Asthma loratadine 10 mg tablet 10 mg PO DAILY allergies 06/15/25 History montelukast 10 mg tablet 10 mg PO DAILY 03/18/2404/02 History (Singulair) norgestimate 0.25 mg-ethinyl 1 tab PO DAILY #84 tabs 0 04/07/25 06/15/25 Rx estradiol 0.035 mg tablet (Sally) Post menopausal: No Patient : No : No PFSH Surgical History H/O dilation and curettage Family History Grandmother Breast cancer, Onset Age: 37 Cervical cancer Unknown Ovarian cancer great grandmother Social History household members: family number of children: 2 current occupational status: employed current occupation: [employer] pets and animals: Yes sexually active: Yes Smoking Status: Never smoker alcohol intake: never substance use type: does not use caffeine: No eating out: rarely or never during the past year weight has: remained stable margaret/holiness: Congregational seatbelt use: always do you feel safe at home: Yes additional social history: - Aaron. Poe HPI D&C polypectomy Details: Amelia Alvarado is a 35-year-old female presenting for a preoperative evaluation for hysteroscopy D&C due to a cervical polyp on ultrasound only. Shewas seen by Leatha Crawford, MARTÍNEZ and Leatha did not appreciate a visible [...] improvement in symptoms since starting the treatment. History 3 Elective abortions Hx Para 2 Spontaneous abortions 1 Hx # Term Pregnancies 2 Ectopic pregnancies Hx # Pregnancies Multiple births # of living children 2 Past Pregnancies Del. Date Name GA/Weeks Outcome Route Bth Weight Infant Gen Labor Lgth Anesthesia Del Locatn Provider FOB 06/07/17 Sg live - full term [facility] 07/01/20 Tristan live - full term [facility] ROS Const ROS Unobtainable: All systems reviewed & are unremarkable except as noted in H Resp Resp: Reports system reviewed and no [...] of Care Code Off vis,est,level 4 Diagnoses Cervical polyp N84.1 Assessment and Plan Assessment and Plan (1) Cervical polyp: Status: Acute Plan: After discussing the patient's diagnosis and treatment plan options, patient wishes to proceed with surgical management. I have discussed with the patient the risks, benefits, and alternatives of the procedure which include but are notlimited to risks of anesthesia, bleeding, infection, possible damage to bowel, bladder, or surrounding vasculature which could lead to additional surgery to evaluate any complications. Patient agrees to procedure and wishes to proceed. ACOG/uptodate references given for additional information regarding procedure. plan for hysteroscopy D&C polypectomy Orders: Orders CBC W/Diff, Automated Today Z01.818 - Encounter for other preprocedural examination Type & Screen - PAT ONLY Today Z01.818 - Encounter for other preprocedural examination 06/15/25 1329 <Electronically signed by Rowena Killian DO> Date _ Rowena Marie DO Cosigner Signature: Date (if applicable) CC: ~ [facility] Work Phone: Reason for referral (narrative)No reason for referral [facility] Work Phone: Advance Directives No Advanced Directives Records Found Advance Directive Response Recorded Date/ Time Living Will No July 01 5:02am Power of Meat Cutter No July 01, 2020 5:02am Advance Directive Response Recorded Date/ Time Living Will No July 01 4:02am Power of Meat Cutter No July 01, 2020 4:02am Chief Complaint and Reason for Visit Chief Complaint Admit Date Annual (CASINO CASHIER) April 07, 2025 9:46 am Reason for Visit Admit Date Encounter for routine gynecological exam ination April 07, 2025 9:46am Chief Complaint Admit Date Annual (CASINO CASHIER) April 07, 2025 9:46 am enlarged uterus April 09, 2025 1:2 8pm Reason for Visit Admit Date Abnormal urine odor April 07, 2025 9:46 am Enlarged uterus April 07, 2025 9:46 am Urge incontinence April 07, 2025 9:46 am Encounter for routine gynecological exam ination April 07, 2025 9:46am Chief Complaint Admit Date Annual (CASINO CASHIER) April 07, 2025 9:46 am enlarged uterus [...] Urinary frequency April 28, 2025 8: 17am Chief Complaint Admit Date Annual (CASINO CASHIER) April 07, 2025 9:46 am enlarged uterus April 09, 2025 1:2 8pm surgical consult per CB April 28 8:17am OVARIAN CYST May 21, 2025 8:46am Chief Complaint Admit Date Annual (CASINO CASHIER) April 07, 2025 9:46 am enlarged uterus April 09, 2025 1:2 8pm surgical consult per CB April 28 8:17am OVARIAN CYST May 21, 2025 8:46am D&C polypectomy June 15, 2025 12 :49pm Reason for Visit Admit Date Abnormal urine odor April 07, 2025 9:46 am Enlarged uterus April 07, 2025 9:46 am Urge incontinence April 07, 2025 9:46 am Encounter for routine gynecological exam ination April 07, 2025 9:46am Cervical polyp April 28, 2025 8: 17am Ovarian cyst April 28, 2025 8: 17am Urinary frequency April 28, 2025 8: 17am Cervical polyp June 15, 2025 12 :49pm Family History No Family History Records Found Relationship Condition Age at Onset Recorded Date/T [...] Provider Active Start: April 09, 2025 End: [place] 1st, 202ZAHRA Quiroz Referring Provider Active Start: April 09, 2025 End: April 09, 2025 Team Status: Inactive Member Role/Relationship Status Dates Dr. Eliezer Chpain DO Primary Care Provider Active Start: April [...] Provider Activ e Start: April 28, 2025 Team Status: Inactive Member Role/Relationship Status Dates Dr. Eliezer Chapin DO Primary Care Provider Active Start: April 28, 2025 End: April 28, 2025 Dr. Rowena Marie DO Attending Provider Activ e Start: April 28, 2025 End: April 28, 2025 Team Status: Inactive Member Role/Relationship Status Dates Dr. Eliezer Chapin DO Primary Care Provider Active Start: May 06, 2025 End: May 06, 2025 Dr. Eliezer Chapin DO Attending Provider Active Start: May 06, 2025 End: May 06, 2025 Team Status: Active Member Role/Relationship Status Dates Dr. Eliezer Chapin DO Primary care physician Active Team Status: Inactive Member Role/Relationship Status Dates Dr. Eliezer Chapin DO Primary care physician Active Start: April 07, 2025 End: April 07, 2025 Dr. Eliezer Chapin DO Referring Provider Active Start: April 07, 2025 End: April 07, 2025 ZAHRA Daly Attending physician Active Start: April 07, 2025 End: April 07, 2025 Team Status: Inactive Member Role/Relationship Status Dates Dr. Eliezer Chapin DO Primary care physician Active Start: April 07, 2025 End: April 07, 2025 ZAHRA Daly Attending physician Active Start: April 07, 2025 End: April 07, 2025 Team Status: Inactive Member Role/Relationship Status Dates Dr. Eliezer Chapin DO Primary care physician Active Start: April 09, 2025 End: April 09, 2025 ZAHRA Daly Attending physician Active Start: April 09, 2025 End: April 09, 2025 ZAHRA Daly Referring Provider Active Start: April 09, 2025 End: April 09, 2025 Team Status: Inactive Member Role/Relationship Status Dates Dr. Eliezer Chapin DO Primary care physician Active Start: April 28, 2025 End: April 28, 2025 Dr. Eliezer Chapin DO Referring Provider Active Start: April 28, 2025 End: April 28, 2025 Dr. Rowena Marie DO Attending physician Acti ve Start: April 28, 2025 End: April 28, 2025 Team Status: Inactive Member Role/Relationship Status Dates Dr. Eliezer Chapin DO Primary care physician Active Start: April 28, 2025 End: April 28, 2025 Dr. Rowena Marie DO Attending physician Acti ve Start: April 28, 2025 End: April 28, 2025 Team Status: Inactive Member Role/Relationship Status Dates Dr. Eliezer Chapin DO Primary care physician Active Start: May 06, 2025 End: May 06, 2025 Dr. Eliezer Chapin DO Attending physician Active Start: May 06, 2025 End: May 06, 2025 Team Status: Inactive Member Role/Relationship Status Dates Dr. Eliezer Chapin DO Primary care physician Active Start: May 21, 2025 End: May 21, 2025 Dr. Rowena Marie DO Attending physician Active Start: May End: May 21, 2025 Dr. Rowena Marie DO Referring Provider Active Start: May End: May 21, 2025 Team Status: Inactive Member Role/Relationship Status Dates Dr. Eliezer Chapin DO Primary care physician Active Start: June 15, 2025 End: June 15, 2025 Dr. Eliezer Chapin DO Referring Provider Active Start: June 15, 2025 End: June 15, 2025 Dr. Rowena Marie DO Attending physician Acti ve Start: June 15, 2025 End: June 15, 2025 Goals (unrecognized section and content) Goals [...] ized section and content) DATE CREATED AUTHOR 06/20/2025 [facility] FOR RECORDS PERTAINING TO PATIENTS [...] BE BASED ON THE PRIMARY CLINICAL RECORDS. [facility] [employer] [facility]. provides no warranty or guarantee of the accuracy or completeness of information in this document.
--- NOTE | 2025-06-25 10:55 | PCM.PRE.AN2 ---
ASA Classification* ASA Classification ASA Classification: 2 Assessment & Plan Anesthesia* Anesthesia Assessment Anesthesia Assessment: Discussed sedation and/or anesthesia options, risks, benefits, and alternatives with patient/parents/legal guardian/POA. Questions invited. The patient/parents/legal guardian/POA seems to understand and agrees to proceed with anesthesia plan. Reviewed the physical assessment, medical history, allergy history and patient home medications list prior to surgery/procedure/anesthetic and documented any changes. Performed airway and anesthesia risk assessments. Anesthesia Type Anesthesia Type: MAC Anesthesia Focused Assessment* Airway Assessment Mouth opens: >3 cm Mallampati Score: II Labs Anesthesia Preop lab: CBC WBC, (4.4-11.0) 4.5 K/mm3 06/15/25, : RBC, (4.2-5.4) 4.37 M/mm3 06/15/25, : Hgb, (12.0-15.0) 12.9 g/dL 06/15/25, : Hct, (37-47) 38.9 % 06/15/25, : Plt Count, (150-450) 165 K/mm3 06/15/25, 13:29 CHEMISTRY Glucose, (70-99) 86 mg/dL 05/06/25, 11:07 POC Glucose, (70-110) 71 mg/dL 04/03/17, 07:02 TSH, (0.358-3.74) 1.82 uIU/mL 11/27/19, 10:39 COAG PT, (11.7-14.9) 15.8 SECONDS H 07/09/19, 07:10 HCG, Quant, (1-3) 38218 mIU/mL H 06/26/19, 19:00 Urine Test Negative Negative Today, 10:40 Pre-Assessment Diagnosis/Proposed Procedure Planned Operative Procedure(s): Hysteroscopy,D&C Polypectomy Anesthesia History 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 When Was Last Pacemaker Check QUESTION #4 FULL TEXT: You/Your Family Experience fever (hyperthermia) with Anesthesia Last Oral Intake Last Oral intake: Last Oral Intake NPO since Meds taken in AM with sips of water? Meds patient instructed to take am of surgery PONV PONV - ophthalmic lens inspector: PONV - ophthalmic lens inspector Female Yes 06/18/25 11:05 HX of Motion Sickness No 06/18/25 11:05 HX of N/V After Surgery No 06/18/25 11:05 Non-Smoker Yes 06/18/25 11:05 Duration of Surgery greater No 06/18/25 11:05 than 60 minutes Number of Risk Factors 2 06/18/25 11:05 PONV Score Moderate Risk 06/18/25 11:05 Height & Weight Height & Weight: Anesthesia: Height & Weight Height 5 ft 5 in 06/15/25 13:07 Respiratory Assessment Respiratory Assessment - ophthalmic lens inspector: Respiratory Tract Infection Hx - ophthalmic lens inspector Hx Respiratory Tract Infection No 06/18/25 11:05 STOP Sleep Apnea STOP Sleep Apnea - ophthalmic lens inspector: STOP Sleep Apnea - ophthalmic lens inspector Hx Hypertension No 06/18/25 11:05 Hx Sleep Apnea No 06/18/25 11:05 CPAP BIPAP Do you snore loudly (louder No 06/18/25 11:05 than talking or can be heard Do you often feel tired/ No 06/18/25 11:05 fatigued/ sleepy during daytime? Has anyone observed you stop No 06/18/25 11:05 breathing during sleep? STOP Results Negative 06/18/25 11:05 QUESTION #5 FULL TEXT : Do you snore loudly (louder than talking or can be heard through closed doors)? 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 Specify any problems Hx of Preganancy in last 3 No 06/18/25 11:05 Months Nurse Filling Out Transfusion MGRIFFITH 06/18/25 11:05 & Questions: Date: 06/18/25 06/18/25 11:05 Time: 11:07 06/18/25 11:05 Patient unable to answer at this time (ie. confused, unrespo /Reproduction History /Reproductive History - ophthalmic lens inspector: /Reproductive Hx- ophthalmic lens inspector Hx Now No 06/18/25 11:05 Gestational Age (in weeks): EDC: Hx Hx Para Hx Section SAB No 06/18/25 11:05 Active Medications Active Medications: Current Medications Generic Name Dose Route Start Last Admin Trade Name Freq PRN Reason Stop Dose Admin Lactated Ringer's 1,000 mls @ 15 mls/hr 06/25/25 10:30 IV .Q48H [facility] PFSH Medical History Alcohol use Asthma Non-smoker Home Medications Medication Instructions Recorded Last Taken Type albuterol sulfate 90 mcg/actuation 1 - 2 puff inhalation Q4H PRN PRN 07/08/19 Unknown History aerosol inhaler Asthma loratadine 10 mg tablet 10 mg PO QHS allergies 07/01/20 Unknown History montelukast 10 mg tablet 10 mg PO QHS 03/18/24 Unknown History (Singulair) fluticasone propionate 50 1 spray intranasal QHS 06/18/25 Unknown History mcg/actuation nasal spray,suspension (24 Hour Allergy Relief) norgestimate 0.25 mg-ethinyl 1 tab PO QHS 06/18/25 Unknown History estradiol 0.035 mg tablet (Sally) Allergy/AdvReac Type Severity Reaction Status Date / Time No Known Allergies Allergy Verified 06/25/25 10:47 Family History Grandmother Breast cancer, Onset Age: 37 Cervical cancer Unknown Ovarian cancer great grandmother Surgical History (Updated 06/18/25 @ 11:05 by Angélica Kuhn) History of wisdom tooth extraction History of tonsillectomy and adenoidectomy H/O dilation and curettage Social History household members: family number of children: 2 current occupational status: employed current occupation: [employer] pets and animals: Yes sexually active: Yes Smoking Status: Never smoker alcohol intake: never substance use type: does not use caffeine: No eating out: rarely or never during the past year weight has: remained stable margaret/taoism: Orthodoxy seatbelt use: always do you feel safe at home: Yes additional social history: - Yehudaon. Poe Review of Systems (Anesthesia) ROS Narrative System reviewed and no additional complaints, except as documented.
[2025-06-25 10:59] VITALS: BP 116/90; PULSE 89; RESP 16; TEMP 37.4; O2SAT 100; BMI 25.3
[2025-06-25] MEDS: Lactated Ringers 1,000 ML 15 ML IV (11:04)
--- NOTE | 2025-06-25 12:00 | EMB_PTH ---
PATIENT: AMELIA ALVARADO [place] [facility] [place] U[place][id number] AGE/SX: 35/F ROOM: RE06/25/[address]: Dr. Rowena Marie DO : 1990 BED: DIS: 06/25/2025 SPEC #: [id number] RECD: 06/25/25 14:09 STATUS: CARMEN REGui #: [id number] SUZY: 06/25/25 12:[address]: Rowena Marie DEPT: SURGICAL PATHOLOGY RECD BY: Suresh Meyers ENTERED: 06/25/25 14:55 SP TYPE: ENDOM BX/C OTHR DR: Dr. Eliezer Chapin, Tissues: A - Endometrium, NOS Procedures: Surgery Specimen Level IV HEADER OPERATION: Hysteroscopy, D&C, polypectomy PRE-OP DIAGNOSIS: Uterine polyp TISSUE SUBMITTED: A- Endometrial curettings MICROSCOPIC DIAGNOSIS A. Endometrium, curettage: * Secretory endometrium MICROSCOPIC DESCRIPTION Slides are reviewed. GROSS DESCRIPTION A. Received in formalin labeled with the patient's name and date of . Designated as "endometrial curettings" is a is a 2.5 x 2.2 x 0.2 cm aggregate of pink-red tissue fragments, clotted blood and mucoid material. Entirely submitted in 1 cassette. [place] 06/25/2025PT:[id number]
--- NOTE | 2025-06-25 12:21 | PCM.HP.BLA ---
History and Physical Date of Admission: 06/25/25 Intake Vital Signs 05/14/2515:21 06/15/2513:06 06/15/2513:07 Height 5 ft 5 in 5 ft 5 in 5 ft 5 in Weight: 152 lb 9 oz BMI 25.4 BP 108/73 Intake Visit Reasons: D&C polypectomy Television Script Writer Required: No Is patient in pain?: No Allergies No Known Allergies Allergy (Verified 06/15/25 13:05) Medications Medication Instructions Recorded Confirmed Type albuterol sulfate 90 mcg/actuation 1 - 2 puff inhalation Q4H PRN PRN 07/08/19 06/15/25 History aerosol inhaler Asthma loratadine 10 mg tablet 10 mg PO DAILY allergies 07/01/20 06/15/25 History montelukast 10 mg tablet 10 mg PO DAILY 03/18/24 06/15/25 History (Singulair) norgestimate 0.25 mg-ethinyl 1 tab PO DAILY #84 tabs 04/07/25 06/15/25 Rx estradiol 0.035 mg tablet (Sally) Post menopausal: No Patient : No : No PFSH Surgical History H/O dilation and curettage Family History Grandmother Breast cancer, Onset Age: 37 Cervical cancer Unknown Ovarian cancer great grandmother Social History household members: family number of children: 2 current occupational status: employed current occupation: [employer] pets and animals: Yes sexually active: Yes Smoking Status: Never smoker alcohol intake: never substance use type: does not use caffeine: No eating out: rarely or never during the past year weight has: remained stable margaret/yarsani: Sikhism seatbelt use: always do you feel safe at home: Yes additional social history: - YehudaMario Poe [facility] D&C polypectomy Details: Stephanie Ricci is a 35-year-old female presenting for a preoperative evaluation for hysteroscopy D&C due to a cervical polyp on ultrasound only. She was seen by Leatha Crawford NP and Leatha did not appreciate a visible polyp. The urinary incontinence began after childbirth and is characterized by an inability to hold urine when the urge arises, leading to leakage if not addressed immediately. This issue has persisted for five years, although it does not occur daily. The patient reports attempts to control the leakage by squeezing the pelvic muscles, but these efforts are often ineffective. The cervical polyp was identified during a pelvic ultrasound ordered after a recent examination. Polyps can be benign but may also cause abnormal bleeding or pain, necessitating removal for further evaluation. The patient also has a history of ovarian cysts, which are monitored through ultrasound. The current cyst appears benign, resembling an ovulatory cyst, and will be reassessed in a follow-up ultrasound. Family history is significant for breast, cervical, and ovarian cancer, with the patient's grandmother and great-grandmother affected. Genetic testing is considered to assess the patient's risk for hereditary cancer syndromes. The patient is currently experiencing a yeast infection, for which she is undergoing treatment with Monistat. She reports improvement in symptoms since starting the treatment. History 3 Elective abortions Hx Para 2 Spontaneous abortions 1 Hx # Term Pregnancies 2 Ectopic pregnancies Hx # Pregnancies Multiple births # of living children 2 Past Pregnancies Del. Date Name GA/Weeks Outcome Route Bth Weight Gen Labor Lgth Anesthesia Del Locatn Provider FOB 06/07/17 Sg live - full term [facility] 07/01/20 Tristan live - full term [facility] ROS Const ROS Unobtainable: All systems reviewed & are unremarkable except as noted in H Resp Resp: Reports system reviewed and no additional complaints, except as documented; Denies cough GI GI: Reports as per HPI Psych Psych: Reports system reviewed and no additional complaints, except as documented Exam Const General: cooperative, healthy appearing, comfortable and no acute distress Resp Effort & Inspection: normal respiratory effort Skin General: no rashes or lesions noted Psych Appearance: grossly normal Speech and Movement: speech and movement normal Coding Level of Care Code Off vis,est,level 4 Diagnoses Cervical polyp N84.1 Assessment and Plan Assessment and Plan (1) Cervical polyp: Status: Acute Plan: After discussing the patient's diagnosis and treatment plan options, patient wishes to proceed with surgical management. I have discussed with the patient the risks, benefits, and alternatives of the procedure which include but are not limited to risks of anesthesia, bleeding, infection, possible damage to bowel, bladder, or surrounding vasculature which could lead to additional surgery to evaluate any complications. Patient agrees to procedure and wishes to proceed. ACOG/uptodate references given for additional information regarding procedure. plan for hysteroscopy D&C polypectomy
--- NOTE | 2025-06-25 12:28 | PCM.DC ---
Discharge Instructions DC O2, CPAP, BIPAP needs Home O2 Discharge instructions: No Dressing / Incision Discharge Activity: Return to Normal Activity, May Shower and May Take a Tub Bath (after 1 week) May resume sexual activity in: 1-2 weeks Weight Bearing Status: Weight bearing as tolerated Lifting Restrictions: none Dressing / Incision Call your doctor if you observe: Fever of 101 or Higher, Using more than 1 pad per hour, Shortness of breath and Uncontrolled pain Follow Up Care Please Follow Up With: Rowena Marie DO When: Call [phone] to schedule appointment. Test Results: Test results from this visit will be discussed in further detail at your follow-up appointment, if applicable. Discharge Plan Admission Primary Reason for Your Visit: dilation and curettage Attending Provider: Rowena Marie Primary Care Provider: Eliezer Chapin Instructions Print Language: Luxembourgish Discharge Orders/Prescriptions Prescriptions: New ibuprofen 800 mg tablet 800 mg PO Q8H PRN (Reason: pain) Qty: 30 0RF Continued montelukast [Singulair] 10 mg tablet 10 mg PO QHS albuterol sulfate 1 INHALER inhaler 1 - 2 puff inhalation Q4H PRN PRN (Reason: Asthma) loratadine 10 MG tablet 10 mg PO QHS fluticasone propionate [24 Hour Allergy Relief] 50 mcg/actuation spray,suspension 1 spray intranasal QHS Rx Instructions: administer into each nostril norgestimate-ethinyl estradiol [Sally] 0.25-0.035 mg tablet 1 tab PO QHS Referrals / Follow Up: Eliezer Chapin DO [Primary Care Provider, Family Practice] Disposition Disposition (needs filled in before D/C Order can be placed): Home, Self Care
[2025-06-25] MEDS: Midazolam 2 MG/2 ML Syringe IV (12:42)
[2025-06-25] MEDS: fentaNYL 100 MCG/2 ML Ampul IV (12:42)
[2025-06-25] MEDS: Lidocaine 1% (5 ml sdv) 5 ML Vial 10 ML IV (12:43)
--- NOTE | 2025-06-25 13:03 | OP.PCM_ITS ---
Multi Select Codes Urinary/Genital Urinary/Genital CPT Codes: 44887 Hysteroscopy, Polypectomy, Symphion Operative Report (Standard) Operative Information Date of Procedure: 06/25/25 Pre-Operative Diagnosis: endometrial and endocervical polyp, abnormal uterine bleeding Post-Operative Diagnosis: endometrial and endocervical polyp, abnormal uterine bleeding Surgery/Procedure Performed: hysteroscopy dilation and curettage it disaster recovery manager: No Type of Anesthesia: MAC RN Documented Start/Stop Times: Operation Date: 06/25/25 12:00 Case Time Into Pre-Op 06/25/25 10:31 Procedure Start Time: 12:44 Procedure Stop Time: 13:00 Select all DRAINS/GRAFTS/IMPLANTS that apply: None Estimated Blood Loss: 5cc Specimen collected: Yes Description of specimen(s) removed: endometrial curetting's Description of surgery: Patient was prepped and draped in a normal sterile fashion under MAC anesthesia. A weighted speculum was placed in the vagina and the anterior lip of the cervix was grasped with a single-tooth tenaculum. Cervix was progressively dilated to allow passage of a 5 mm hysteroscope. The lining was fully visualized and noted to have polyp like structures present . Uterine sounded to 8 cm and found to be severely retroverted. Curettage was performed and the specimen was sent to pathology. All instruments were removed from the vagina and excellent hemostasis was noted. Patient was awoken and taken to recovery in stable condition. Surgical Findings: polypoid appearing endometrium Complications Complications: No Admit VTE Documentation VTE Present on Admission: No VTE Mechan Device Prophylaxis: SCD's VTE Pharm Prophylaxis ordered?: No
--- NOTE | 2025-06-25 13:11 | PCM.POST.ANE ---
Anesthesia: Postop Eval I Current Vital Signs Temperature: 97.4 F Pulse Rate: 72 Blood Pressure: 114/73 Respiratory Rate: 14 Pulse Ox: 98 Oxygen Delivery Method: Room Air Assessment Airway patent: Yes Spontaneous unlabored respirations: Yes Mental status: Awake and Calm nausea: No Vomiting: No Anesthesia Complication: No Fluid Hydration Crystalloid volume administer (ml): 700 Total IV fluid infused: 700 Progress Note Anesthesia document: Postop Eval 1 completed: Yes
[2025-06-25 13:12] VITALS: BP 104/70; BP 114/73; BP 116/90; PULSE 72; PULSE 75; RESP 12; RESP 14; TEMP 36.3; TEMP 37.2; O2SAT 100; O2SAT 98
--- NOTE | 2025-06-25 13:16 | POSTOPAN2_ITS ---
Anesthesia Postop Eval I Sum Postop Eval Completion status Anesthesia document: Postop Eval 1 completed: Yes Anesthesia Postop Eval I Summary Anesthesia Postop Eval I Summary: Anesthesia Postop Eval I: Assessment Summary Airway patent Yes 06/25/25 13:12 AUTOMATION DESIGN [email or web address].[email or web address] Spontaneous unlabored Yes 06/25/25 13:12 AUTOMATION DESIGN ENGINEER.ABAR respirations Mental status Awake,Calm 06/25/25 13:12 AUTOMATION DESIGN ENGINEER.ABAR nausea No 06/25/25 13:12 AUTOMATION DESIGN ENGINEER.ABAR Vomiting No 06/25/25 13:12 AUTOMATION DESIGN ENGINEER.ABAR Anesthesia Postop Eval I: Fluid Summary Crystalloid volume administer 700 06/25/25 13:12 AUTOMATION DESIGN [email or web address].ABAR (ml) Colloids volume administered ( ml) Blood Product volume administered (ml) Total IV fluid infused 700 06/25/25 13:12 AUTOMATION DESIGN ENGINEER.ABAR Anesthesia Postop Eval I: Summary Notes Anesthesia Complication No 06/25/25 13:12 AUTOMATION DESIGN [email or web address].ABAR Anesthesia Complication Comment: Post-operative progress note Anesthesia: Postop Eval II Evaluation Mental status: Awake Pain Level: 0 nausea: No Vomiting: No
--- NOTE | 2025-06-25 13:16 | PCM.POSTANE2 ---
Anesthesia Postop Eval I Sum Postop Eval Completion status Anesthesia document: Postop Eval 1 completed: Yes Anesthesia Postop Eval I Summary Anesthesia Postop Eval I Summary: Anesthesia Postop Eval I: Assessment Summary Airway patent Yes 06/25/25 13:12 ABSTRACT [email or web address] Spontaneous unlabored Yes 06/25/25 13:12 ABSTRACT [email or web address] respirations Mental status Awake,Calm 06/25/25 13:12 ABSTRACT [email or web address] nausea No 06/25/25 13:12 ABSTRACT [email or web address] Vomiting No 06/25/25 13:12 ABSTRACT [email or web address] Anesthesia Postop Eval I: Fluid Summary Crystalloid volume administer 700 06/25/25 13:12 ABSTRACT [email or web address] (ml) Colloids volume administered ( ml) Blood Product volume administered (ml) Total IV fluid infused 700 06/25/25 13:12 ABSTRACT [email or web address].ABAR Anesthesia Postop Eval I: Summary Notes Anesthesia Complication No 06/25/25 13:12 ABSTRACT [email or web address] Anesthesia Complication Comment: Post-operative progress note Anesthesia: Postop Eval II Evaluation Mental status: Awake Pain Level: 0 nausea: No Vomiting: No
[2025-06-25 13:18] VITALS: BP 116/90; BP 95/66; PULSE 74; RESP 12; O2SAT 100
[2025-06-25 13:24] VITALS: BP 103/71; BP 116/90; PULSE 70; RESP 12; TEMP 37.2; O2SAT 100
[2025-06-25 13:54] VITALS: BP 116/90
== END 2025-06-25 13:57 | disposition home or self-care (01) ==
LOC: SDC 10:29 → AC 10:31
PROVIDERS: PCP Family Medicine; Referring Provider Obstetrics & Gynecology; Visit Provider Obstetrics & Gynecology
PROC: 0UDB8ZZ Extraction of Endometrium, Via Natural or Artificial Opening Endoscopic (ICD-10-PCS; CPT 58558; principal; 2025-06-25 11:50)
DX: N84.1 Polyp of cervix uteri (principal); N93.9 Abnormal uterine and vaginal bleeding, unspecified; J45.909 Unspecified asthma, uncomplicated
CPT/HCPCS: 58558; 00952; 36415; 81025; 85025; 86850; 86900; 86901; 88305